=== PATIENT | female | born 1965 | race Caucasian/White ===

== ENCOUNTER 2021-02-13 16:35 | Outpatient (CLI) | payer BC, SELFPAY ==
--- NOTE | ~2021-02-13 | MM_ITS ---
EXAMINATION: MM screening [facility] BI w grisel HISTORY: Screening mammogram TECHNIQUE: Craniocaudal and mediolateral oblique 3-D tomosynthesis images were obtained and synthetic 2-D images were generated. CAD analysis was submitted and interpreted. COMPARISON: 06/02/2018, 08/26/2016, 05/22/2015 BREAST PARENCHYMAL COMPOSITION: The breasts are almost entirely fatty. FINDINGS: There is no evidence of suspicious mass, calcification, or architectural distortion to sugg est malignancy in either breast. There has been no suspicious interval change. IMPRESSION: 1. No mammographic evidence of malignancy. 2. Recommend routine screening mammography in one year. BI-RADS Category 1: Negative Reviewed, dictated and finalized at location A.
== END 2021-02-13 16:36 | disposition home or self-care (01) ==
LOC: ANHIMG 16:38
PROVIDERS: PCP Internal Medicine; Visit Provider Family Medicine
DX: Z12.31 Encounter for screening mammogram for malignant neoplasm of breast (principal)
CPT/HCPCS: 77063; 77067

== ENCOUNTER 2021-04-19 01:29 | Day surgery (SDC) | payer BC, SELFPAY ==
[2021-04-03 13:42] VITALS: BMI 46.2
[2021-04-19] MEDS: LACTATED RINGERS 1,000 ML 150 ML IV CONT (07:22)
[2021-04-19 07:32] VITALS: BP 141/96; PULSE 94; RESP 18; TEMP 36.4; O2SAT 94; BMI 46.6
--- NOTE | 2021-04-19 07:38 | SUR.OPER ---
0730 SPOKE WITH PATIENT AND FAMILY...INSTRUCTED ON DELAY.
--- NOTE | 2021-04-19 07:59 | WPDANESEPPF ---
Anes - Initial Pre Proc Eval Procedure: Operation Date: 04/19/21 08:30 Proposed Procedures p Esophagogastroduodenoscopy - Popeye Figueroa MD Date/Time: 04/19/21 07:59 Surgeon: Popeye Figueroa MD Pre Op Diagnosis: GERD Patient Data Age: 56 Gender: F Height: 1.68 m Weight: 131 kg Last Vital Signs Temp 36.4 C 04/19/21 07:32 Pulse 94 04/19/21 07:32 Resp 18 04/19/21 07:32 BP 141/96 H 04/19/21 07:32 Pulse Ox 94 04/19/21 07:32 Allergies Allergy/AdvReac Type Severity Reaction Status Date / Time No Known Allergies Allergy Unknown Verified 04/19/21 07:20 Home Medications Medication Instructions Recorded Confirmed Type Calcium 600 + D(3) 1 cap PO DAILY 08/16/19 04/03/21 History Multiple Vitamin, Womens 1 tablet PO DAILY 08/16/19 04/03/21 History ascorbic acid (vitamin C) [Vitamin 2 g PO DAILY 08/16/19 04/03/21 History C] cholecalciferol (vitamin D3) 5,000 unit PO DAILY 08/16/19 04/03/21 History [Vitamin D3] esomeprazole magnesium 20 mg PO DAILY 08/16/19 04/03/21 History [id number]-[id number] 2-C-D3-padma 1 tablet PO DAILY 08/16/19 04/03/21 History vitamin E 400 unit PO DAILY 08/16/19 04/03/21 History montelukast 10 mg tablet 10 mg PO DAILY #90 tablet 11/14/19 04/03/21 Rx lovastatin 20 mg tablet 20 mg PO QPM #90 tablet 05/28/20 04/03/21 Rx valacyclovir 1 gram tablet 1,000 mg PO DAILY #90 tablet 07/03/20 04/03/21 Rx nortriptyline 25 mg capsule 25 mg PO HS #90 cap 09/20/20 04/03/21 Rx apple cider vinegar 600 mg PO BID 04/03/21 04/03/21 History aspirin 81 mg PO DAILY 04/03/21 04/03/21 History biotin 10,000 mcg PO DAILY 04/03/21 04/03/21 History herbal complex no.218 [Serenagen] 500 mg PO DAILY 04/03/21 04/03/21 History levothyroxine 75 mcg PO DAILY 04/03/21 04/03/21 History Patient hx anesthesia problems: none Family hx anesthesia problems: none PMFSH Past Medical History Medical History 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 GERD (gastroesophageal reflux disease) Hyperlipidemia Hypothyroidism VISHNU (obstructive sleep apnea) CPAP Osteoarthritis Surgical History Surgical History History of hysterectomy Family History Family History Mother Hypertension Family history of malignant neoplasm of uterus Family history of hypercholesterolemia Cerebrovascular accident Family history of malignant neoplasm of cervix Sibling Hypertension Family history of hypercholesterolemia Father Family history of lung cancer Social History Social History Smoking status: Never smoker Alcohol intake: current Alcohol use details: socially Living arrangements: with family Additional living arrangements comments: [place]- [phone] Gender identity (if verbalized by the patient): Female Spiritual care concerns: No Anes - Eval Final PreProcedure Day of Procedure 04/19/21 07:59 Patient weight: morbidly obese Heart: regular rate and rhythm Lungs: clear to auscultation Airway: Mallampati scale class II Neurological: alert and oriented Last oral intake: >/= 8 hours ASA classification: III Emergent: no Anesthetic plan: proceed Anesthesia type and monitoring: general GIVS and standard monitoring Informed Consent: The patient's anesthetic plan and its attendant risks and benefits were discussed with the patient/family/POA. Questions were solicited and answers provided to the satisfaction of the patient/family/POA.
--- NOTE | 2021-04-19 08:50 | PM.HPGS ---
History of Present Illness History of Present Illness Consent: Risks, benefits, and alternatives have been discussed and questions answered. Patient agrees to proceed with procedure. Chief complaint: GERD Narrative: Kimber Malhotra is a 56 year old female with choking sensation and also intermittent hoarseness despite using ppi. Never had egd. Review of Systems Constitutional: Constitutional: Denies headache(s) and Denies weakness Eyes: Eyes: Denies blurry vision ENT: Reports Normal hearing present, Denies headache(s) and Denies neck pain Cardiovascular: Cardiovascular: Denies chest pain and Denies dyspnea Respiratory: Respiratory: Denies dyspnea Gastrointestinal: Gastrointestinal: Reports no additional gastrointestinal complaints Genitourinary: Genitourinary: Denies dysuria Musculoskeletal: Musculoskeletal: Denies neck pain Integumentary/Breasts: Skin/Breast: Denies dry skin Neurologic: Reports Normal hearing present, Denies headache(s) and Denies weakness Psychiatric: Psychiatric: Denies anxiety Endocrine: Endocrine: Denies change in body appearance Hematologic/Lymphatic: Hematologic/Lymphatic: Denies easy bleeding Allergic/Immunologic: Allergic/Immunologic: Denies urticaria PMFSH Past Medical History Medical History (Updated 04/19/21 @ 08:51 by Popeye Figueroa MD) Choking due to phlegm 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 GERD (gastroesophageal reflux disease) Hoarseness Hyperlipidemia Hypothyroidism VISHNU (obstructive sleep apnea) CPAP Osteoarthritis Surgical History Surgical History History of hysterectomy Family History Family History Mother Hypertension Family history of malignant neoplasm of uterus Family history of hypercholesterolemia Cerebrovascular accident Family history of malignant neoplasm of cervix Sibling Hypertension Family history of hypercholesterolemia Father Family history of lung cancer Social History Social History Smoking status: Never smoker Alcohol intake: current Alcohol use details: socially Living arrangements: with family Additional living arrangements comments: [place]- [phone] Gender identity (if verbalized by the patient): Female Spiritual care concerns: No Meds Home Medications and Allergies Home Medications Medication Instructions Recorded Confirmed Type Calcium 600 + D(3) 1 cap PO DAILY 08/16/19 04/03/21 History Multiple Vitamin, Womens 1 tablet PO DAILY 08/16/19 04/03/21 History ascorbic acid (vitamin C) [Vitamin 2 g PO DAILY 08/16/19 04/03/21 History C] cholecalciferol (vitamin D3) 5,000 unit PO DAILY 08/16/19 04/03/21 History [Vitamin D3] esomeprazole magnesium 20 mg PO DAILY 08/16/19 04/03/21 History [id number]-mpzwh-ryd 2-C-D3-padma 1 tablet PO DAILY 08/16/19 04/03/21 History vitamin E 400 unit PO DAILY 08/16/19 04/03/21 History montelukast 10 mg tablet 10 mg PO DAILY #90 tablet 11/14/19 04/03/21 Rx lovastatin 20 mg tablet 20 mg PO QPM #90 tablet 05/28/20 04/03/21 Rx valacyclovir 1 gram tablet 1,000 mg PO DAILY #90 tablet 07/03/20 04/03/21 Rx nortriptyline 25 mg capsule 25 mg PO HS #90 cap 09/20/20 04/03/21 Rx apple cider vinegar 600 mg PO BID 04/03/21 04/03/21 History aspirin 81 mg PO DAILY 04/03/21 04/03/21 History biotin 10,000 mcg PO DAILY 04/03/21 04/03/21 History herbal complex no.218 [Serenagen] 500 mg PO DAILY 04/03/21 04/03/21 History levothyroxine 75 mcg PO DAILY 04/03/21 04/03/21 History Allergies Allergy/AdvReac Type Severity Reaction Status Date / Time No Known Allergies Allergy Unknown Verified 04/19/21 07:20 Vital Signs Vital Signs - 24 hr 04/19/21 07:32 Temperature 97.6 F Pulse Rate 94 Respiratory Rate 18 Blood Pressure 141/96 H Pulse Oximetry 94 Exam Const:
[2021-04-19] MEDS: BENZOCAINE (*SP) 60 ML SPRAY CAN (HURRICAINE) 1 SPRAY MUCOUS MEM (08:53)
[2021-04-19 09:05] VITALS: BP 129/69; PULSE 87; RESP 25; O2SAT 99
[2021-04-19 09:15] VITALS: BP 145/84; PULSE 79; RESP 21; O2SAT 99
[2021-04-19 09:25] VITALS: BP 149/96; PULSE 74; RESP 19; O2SAT 96
== END 2021-04-19 09:35 | disposition home or self-care (01) ==
PROVIDERS: PCP Family Medicine; Visit Provider Internal Medicine Gastroenterology
PROC: 0DJ08ZZ Inspection of Upper Intestinal Tract, Via Natural or Artificial Opening Endoscopic (ICD-10-PCS; CPT 43235; principal; 2021-04-19 08:30)
DX: K21.9 Gastro-esophageal reflux disease without esophagitis (principal); R09.89 Other specified symptoms and signs involving the circulatory and respiratory systems; R49.0 Dysphonia; E78.5 Hyperlipidemia, unspecified; E03.9 Hypothyroidism, unspecified; M19.90 Unspecified osteoarthritis, unspecified site; G47.33 Obstructive sleep apnea (adult) (pediatric); Z90.710 Acquired absence of both cervix and uterus
CPT/HCPCS: 43239; 88305; J2704; J7120

== ENCOUNTER 2021-09-12 08:34 | Outpatient (CLI) | payer BC, SELFPAY ==
--- NOTE | ~2021-09-12 | MR_ITS ---
EXAMINATION: MR knee LT wo con DATE: 09/12/2021 09:36 INDICATION: Unspecified internal derangement of the left knee present with medial left knee pain and swelling TECHNIQUE: Magnetic resonance imaging (MRI) of the left knee was performed without intravenous contra st. Sequences included coronal PD-weighted FSE, coronal PD-weighted FS FSE, sagittal T2-weighted FSE , sagittal PD-weighted FS FSE and axial PD weighted fat saturated FSE. COMPARISON: 07/13/2019 FINDINGS: Medial compartment: Again seen is a very small anterior displaced flap tear arising from inner third of the lateral aspec t of the posterior horn of the medial meniscus. There is a new longitudinal horizontal tear extending to the superior articular surface of the posterior horn which extends further medially to the software design engineer ior body of the meniscus. Interval progression of chondromalacia with now deep chondral fissuring wit hout degenerative subchondral changes along the central weightbearing medial femoral condyle. Articul ar cartilage at the medial tibial plateau appears relatively preserved. Lateral compartment: Lateral meniscus is normal. Interval increase in size of a now 14 x 10 mm region of deep chondral ulc eration at the anterior to central weightbearing lateral femoral condyle. Mild chondral surface regul arity at the more anterior weightbearing lateral femoral condyle. Partial-thickness cartilage loss wi th smooth chondral surface at the lateral third of the lateral tibial plateau. Patellofemoral compartment: Deep chondral ulceration with mild irregularity to the underlying cortex and minimal subarticular mar row signal changes at the central aspect of the patellar apical ridge and inferomedial aspect of the lateral facet. Chondral surface regularity along the medial patellar facet. Additional deep chondral ulceration with more prominent cortical irregularity and subarticular cystic change at the trochlear groove, lateral trochlear and lateral side of the medial trochlea. Overall there has been no signific ant change in the patellofemoral compartment. Ligaments and tendons: Anterior and posterior cruciate ligaments are normal. The medial collateral ligament and fibular silke ateral ligament complex are normal. The extensor mechanism is normal. The visualized medial and later al hamstring tendons as well as the iliotibial band are normal. Fluid: Small knee joint effusion. No loose osteochondral bodies identified. Persistent mild prepatellar kelly a without discrete bursal fluid collection. Osseous/other: Proximally 5 mm lateral patellar subluxation. Alignment is otherwise normal. No fracture or abnormal marrow replacing process. IMPRESSION: 1. Interval progression of a complex medial meniscal tear with unchanged small displaced flap at the lateral aspect of the posterior horn and new more extensive longitudinal horizontal tear plane extend ing across the posterior horn to the posterior body. 2. Tricompartmental osteoarthritis, moderate severity with no significant change in extensive high-gr vasyl patellofemoral chondromalacia and mild in the medial and lateral compartments with progression of moderate grade chondral malacia along the weightbearing femoral condyles. Reviewed, dictated and finalized at location B. SPECIALIST IMPRESSION: 1. Interval progression of a complex medial meniscal tear with unchanged small displaced flap at the lateral aspect of the posterior horn and new more extensi ve longitudinal horizontal tear plane extending across the posterior horn to th e posterior body. 2. Tricompartmental osteoarthritis, moderate severity with no significant gamble e in extensive high-grade patellofemoral chondromalacia and mild in the medial and lateral compartments with progression
== END 2021-09-12 08:35 | disposition home or self-care (01) ==
LOC: ANHIMG 08:41
PROVIDERS: PCP Family Medicine; Visit Provider Orthopaedic Surgery
DX: M17.12 Unilateral primary osteoarthritis, left knee (principal)
CPT/HCPCS: 73721

== ENCOUNTER 2021-10-28 07:55 | Outpatient (CLI) | payer BC, SELFPAY ==
--- NOTE | 2021-10-28 08:00 | ECG_ITS ---
Measurements Intervals [place] Rate: 81 P: 40 WA: 144 QRS: 7 QRSD: 89 T: 7 QT: 333 QTc: 387 Interpretive Statements SINUS RHYTHM BORDERLINE R WAVE PROGRESSION, ANTERIOR LEADS BORDERLINE T WAVE ABNORMALITY- INFERIOR LEADS BASELINE ARTIFACT- I, III, AVL BORDERLINE ECG Electronically Signed On 10-28-2021 8:28:41 POWER TOOL REPAIRER by Rustam Bruno D.O.
[2021-10-28 09:12] LABS: Anion Gap 7 mmol/L (8-16); Blood Urea Nitrogen 13 mg/dL (7-17); Calcium 8.8 mg/dL (8.4-10.2); Carbon Dioxide 29 mmol/L (22-30); Chloride 104 mmol/L (98-107); Estimated Glomerular Filt Rate > 60; Glucose 105 mg/dL (65-110); Potassium 4.2 mmol/L (3.4-5.0); Sodium 140 mmol/L (137-145)
== END 2021-10-28 07:56 | disposition home or self-care (01) ==
LOC: ANHSURGERY 07:59
PROVIDERS: Anesthesiology; PCP Family Medicine; Visit Provider Orthopaedic Surgery
DX: E78.5 Hyperlipidemia, unspecified (principal); Z79.899 Other long term (current) drug therapy; Z01.818 Encounter for other preprocedural examination; R94.31 Abnormal electrocardiogram [ECG] [EKG]
CPT/HCPCS: 36415; 80048; 93005

== ENCOUNTER 2021-10-29 01:48 | Day surgery (SDC) | payer BC, SELFPAY ==
[2021-10-25 10:55] VITALS: BMI 45.5
--- NOTE | 2021-10-25 11:08 | PC.NURSE ---
Report to the Outpatient Waiting Room, entrance under the green pavilion located off [facility], at time 11:00 on date 10/29/21. OR Time: 1:00. - You will be asked a series of questions to screen for COVID 19 for your protection. - A mask is required within the hospital. - No visitors are allowed at this time. Preoperative COVID Testing Requirements: No COVID Test needed if: (proof is required; if not received patient will have Rapid Test prior to entry) - Patient has received COVID Vaccine at least 14 days prior to procedure date or - Patient has positive COVID test result within last 90 days of surgery date. COVID Test needed if above criteria is not met Patients may have clear liquids (water, carbonated beverages, clear teas, apple juice) until 3 hours prior to surgery (10:00) with a maximum of 20 ounces. - No food from midnight until time of surgery Take the following medications with a SIP of water the morning of surgery: LEVOTHYROXINE, VALACYCLOVIR Medications to discontinue per physician: VITAMINS/SUPPLEMENTS Date to take last dose: 10/25/21 STOP ASPIRIN 7 DAYS PRIOR TO SURGERY PER DR. PERSON Please no make-up, nail luxembourgish, hairspray, perfume, deodorant, or body powder the day of surgery. No jewelry (including any body piercings) or valuables the day of surgery, leave them at home. Please take a shower or bath the night before, or the morning of, surgery with an antibacterial soap. Wear comfortable, loose fitting clothing. - Jewelry must be removed prior to entering the operating room. Rings and piercings that are not removed may be cut off. - The hospital will not accept responsibility for valuables. - Please leave all valuables, including medications, at home the day of surgery. If you are going home after surgery, a licensed restaurant delivery driver must drive you home. - NO public transportation without another adult. - We recommend that an adult stay with you for 24 hours following discharge. - We also recommend that you do not drive, make important decision, drink alcoholic beverages, or take any drugs that were not prescribed by your health care provider for at least 24 hours after your discharge time. Follow any additional instructions given to you from your surgeon. Telephone instructions given to FELIX AYOUB and asked if any additional questions and then verbalized understanding. Patient advised to call surgeon office or pre surgery nurse liaison [phone] if any additional questions.
[2021-10-29] VITALS (8 sets, daily range): BP systolic 123–151; BP diastolic 71–88; PULSE 70–83; RESP 16–20; TEMP 36.6–36.8; O2SAT 95–100
--- NOTE | 2021-10-29 09:40 | WPDHPUPDATE1 ---
History and Physical Update Update Date/Time: 10/29/21 09:40 History and Physical has been reviewed, including an updated exam of the patient. There are NO changes in the patient's condition. Risks, benefits, and alternatives have been discussed and questions answered. Patient agrees to proceed with procedure.
[2021-10-29] MEDS: LACTATED RINGERS 1,000 ML 30 ML IV CONT (11:07)
[2021-10-29] MEDS: KETOROLAC 15 MG/ML VIAL (*BKC) IV PUSH (11:09)
[2021-10-29] MEDS: ACETAMINOPHEN 500 MG TABLET 1000 MG PO (11:10)
--- NOTE | 2021-10-29 11:27 | WPDANESEPPF ---
Anes - Initial Pre Proc Eval Procedure: Operation Date: 10/29/21 12:30 Proposed Procedures p Left Knee Arthroscopic Partial Medial Meniscectomy - Eduin Jovel MD Date/Time: 10/29/21 11:27 Surgeon: Eduin Jovel MD Pre Op Diagnosis: left medial meniscus tear Patient Data Age: 56 Gender: F Height: 1.69 m Weight: 129.97 kg Allergies Allergy/AdvReac Type Severity Reaction Status Date / Time No Known Allergies Allergy Unknown Verified 10/25/21 10:52 Home Medications Medication Instructions Recorded Confirmed Type Calcium 600 + D(3) 1 cap PO DAILY 08/16/19 10/25/21 History Multiple Vitamin, Womens 1 tablet PO DAILY 08/16/19 10/25/21 History ascorbic acid (vitamin C) [Vitamin 2 g PO DAILY 08/16/19 10/25/21 History C] cholecalciferol (vitamin D3) 5,000 unit PO DAILY 08/16/19 10/25/21 History [Vitamin D3] esomeprazole magnesium 20 mg PO DAILY 08/16/19 10/25/21 History jcuvsqfz-kewxr-ajd 2-C-D3-padma 1 tablet PO DAILY 08/16/19 10/25/21 History vitamin E 400 unit PO DAILY 08/16/19 10/25/21 History montelukast 10 mg tablet 10 mg PO DAILY #90 tablet 11/14/19 10/25/21 Rx lovastatin 20 mg tablet 20 mg PO QPM #90 tablet 05/28/20 10/25/21 Rx valacyclovir 1 gram tablet 1,000 mg PO DAILY #90 tablet 07/03/20 10/25/21 Rx nortriptyline 25 mg capsule 25 mg PO HS #90 cap 09/20/20 10/25/21 Rx apple cider vinegar 600 mg PO BID 04/03/21 10/25/21 History aspirin 81 mg PO DAILY 04/03/21 10/25/21 History biotin 10,000 mcg PO DAILY 04/03/21 10/25/21 History herbal complex no.218 [Serenagen] 500 mg PO DAILY 04/03/21 10/25/21 History levothyroxine 75 mcg PO DAILY 04/03/21 10/25/21 History furosemide 20 - 40 mg PO DAILY PRN 10/25/21 10/25/21 History Patient hx anesthesia problems: none Family hx anesthesia problems: none Results Review: All pre-operative results and documents have been reviewed as part of the pre-operative evaluation. 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 GERD (gastroesophageal reflux disease) Hoarseness Hyperlipidemia Hypothyroidism VISHNU (obstructive sleep apnea) CPAP Osteoarthritis Surgical History Surgical History History of hysterectomy Family History Family History Mother Hypertension Family history of malignant neoplasm of uterus Family history of hypercholesterolemia Cerebrovascular accident Family history of malignant neoplasm of cervix Sibling Hypertension Family history of hypercholesterolemia Father Family history of lung cancer Social History Social History Smoking status: Never smoker Alcohol intake: current Alcohol use details: socially Substance use: never Substance use type: does not use Living arrangements: with family Additional living arrangements comments: [place]- [phone] Gender identity (if verbalized by the patient): Female Spiritual care concerns: No Anes - Eval Final PreProcedure Day of Procedure 10/29/21 11:27 Patient weight: morbidly obese Heart: regular rate and rhythm Lungs: clear to auscultation Airway: Mallampati scale class II Neurological: alert and oriented Last oral intake: >/= 8 hours ASA classification: III Emergent: no Anesthetic plan: proceed Anesthesia type and monitoring: general LMA and standard monitoring Results Review: All pre-operative results and documents have been reviewed as part of the pre-operative evaluation. Informed Consent: The patient's anesthetic plan and its attendant risks and benefits were discussed with the patient/family/POA. Questions were solicited and answers provided to the satisfaction of the patient/family/POA.
[2021-10-29] MEDS: ceFAZolin 3 GM/D5W 100 ML 100 ML IVPB (11:58)
[2021-10-29] MEDS: BUPIVACAINE/EPINEPHRINE 0.25% 10 ML VIAL 20 ML INFILTRATE (12:27)
--- NOTE | 2021-10-29 14:58 | P.OP_ITS ---
Procedure Note - Detailed Date of Procedure 10/29/21 Pre-op Diagnosis left medial meniscus tear Post-op Diagnosis same Procedure Performed Arthroscopic partial left meniscectomy Surgeon Eduin Jovel MD Television Tube Inspector Luz Wood PA-C Anesthesia general Findings Moderate synovitis. Severe tricompartmental degenerative changes. Most noted at the patellofemoral joint. Grade 3 delaminated area at the posterior weight- bearing medial femoral condyle. This did appear to potentially contact the torn posterior horn meniscus. Meniscus tear was debrided primarily at the posterior row medial aspect. Chondroplasty was performed on the femur. Medial femur chondromalacia grade 3, medial tibia grade 1. Lateral femur chondromalacia grade 2, lateral tibia grade 1. Patellar grade 2/3, trochlea grade 2. Description of Procedure The patient was identified and the surgical site confirmed and signed in the preoperative holding area. Antibiotics were started per protocol. She was brought to the operative room and transferred to the OR table. A general anesthetic was administered. Supine position with the operative lower extremity position in the leg samaniego after placement of a well padded tourniquet. The leg support was lowered and the contralateral limb was supported with a soft bolster. The knee was prepped and draped in the usual sterile fashion. A time- out was performed. The portal sites were marked and infiltrated with 0.5% Marcaine 20 mL. The limb was exsanguinated and the tourniquet inflated to 300 mL Hg. Standard inferolateral and inferomedial portals were established. Inflow was obtained with the saline pump. The camera was introduced. Diagnostic inspection of the joint was accomplished. The meniscus was debrided with the arthroscopic shaver and punches until stable. The arthroscopic instruments were removed. The tourniquet released and wounds closed with subcutaneous 4-0 Monocryl absorbable suture. Steri strips and a sterile dressing were applied. A light elastic wrap was placed. The patient was extubated and brought to the recovery room in stable condition. Estimated Blood Loss -1.0 Drains No Complications No immediate complications Condition stable Disposition PACU
== END 2021-10-29 14:37 | disposition home or self-care (01) ==
PROVIDERS: PCP Family Medicine; Visit Provider Orthopaedic Surgery
PROC: (CPT 29870; principal; 2021-10-29 12:30)
DX: M23.222 Derangement of posterior horn of medial meniscus due to old tear or injury, left knee (principal); M17.12 Unilateral primary osteoarthritis, left knee; M65.862 Other synovitis and tenosynovitis, left lower leg; M22.42 Chondromalacia patellae, left knee; K21.9 Gastro-esophageal reflux disease without esophagitis; E78.5 Hyperlipidemia, unspecified; E03.9 Hypothyroidism, unspecified; G47.33 Obstructive sleep apnea (adult) (pediatric); Z79.82 Long term (current) use of aspirin; E66.01 Morbid (severe) obesity due to excess calories; Z68.42 Body mass index [BMI] 45.0-49.9, adult
CPT/HCPCS: 29881; A9270; J0690; J1100; J1885; J2250; J2405; J2704; J3010; J7120

== ENCOUNTER → 2022-05-14 13:45 | Outpatient (CLI) | payer BC, SELFPAY ==
--- NOTE | ~2022-05-14 | US_ITS ---
EXAMINATION: US carotid duplex BI DATE: 05/14/2022 14:18 INDICATION: Rounded artery stenosis TECHNIQUE: Grayscale, color Doppler, and pulsed Doppler images of the cervical carotid arteries were obtained. The degree of vessel stenosis is placed in one of the following categories: normal, <50%, 5 0-69%, >=70% but less than near-occlusion, near-occlusion, or total occlusion. Note that percent sten osis relative to normal distal artery lumen diameter is indirectly measured from velocity measurement s as described by Oneil, et al. Radiology 2003; 229:340-346. Notes: Normal: Peak systolic velocity <125 centimeters/sec and no plaque <50%. Peak systolic velocity <125 ( EDV <40; ICA/CCA PSV ratio <2.0; used these factors only a tandem lesions or low cardiac output or co ntralateral disease) 50-69 %: PSV 125-230 (EDV 40-100; ratio 2-4) >= 70% but less than near occlusion: PSV greater than 230 (EDV > 100; ratio> 4.0) Near Occlusion: PSV that is variable; markedly narrowed lumen Occlusion: Absent flow on color/spectral Doppler and no lumen on pastor scale. COMPARISON: None. FINDINGS: RIGHT: The right common carotid artery (CCA) peak systolic velocity (PSV) is 104 cm/s. The right internal ca rotid artery (ICA) PSV is 80 cm/s. The right ICA end-diastolic velocity (EDV) is 25 cm/s. The right I CA/CCA PSV ratio is 0.8. The external carotid artery (ECA) PSV is 114 cm/s. There is antegrade flow i n the right vertebral artery. LEFT: The left CCA PSV is 105 cm/s. The left ICA PSV is 95 cm/s. The left ICA EDV is 32 cm/s. The left ICA/ CCA PSV ratio is 0.9. The ECA PSV is 96 cm/s. There is antegrade flow in the left vertebral artery. IMPRESSION: 1. Less than 50% stenosis in the right internal carotid artery by sonographic criteria. 2. Less than 50% stenosis in the left internal carotid artery by sonographic criteria. Reviewed, dictated and finalized at location A. IMPRESSION: 1. Less than 50% stenosis in the right internal carotid artery by sonographic chandler madrigal. 2. Less than 50% stenosis in the left internal carotid artery by sonographic antonella lovell.
== END ==
PROVIDERS: PCP Family Medicine; Visit Provider Family Medicine
DX: I65.23 Occlusion and stenosis of bilateral carotid arteries (principal)
CPT/HCPCS: 93880

== ENCOUNTER → 2022-07-11 16:19 | Outpatient (CLI) | payer BC, SELFPAY ==
--- NOTE | ~2022-07-11 | MM_ITS ---
EXAMINATION: MM screening [facility] BI w grisel HISTORY: Screening TECHNIQUE: Craniocaudal and mediolateral oblique 3-D tomosynthesis images were obtained and synthetic 2-D images were generated. CAD analysis was submitted and interpreted. COMPARISON: Comparison to multiple prior studies sequentially, with oldest reviewed study dated 03/2013. BREAST PARENCHYMAL COMPOSITION: There are scattered areas of fibroglandular density. FINDINGS: There is no evidence of suspicious mass, calcification, or architectural distortion to sugg est malignancy in either breast. There has been no suspicious interval change. IMPRESSION: 1. No mammographic evidence of malignancy. 2. Recommend routine screening mammography in one year. BI-RADS Category 1: Negative Reviewed, dictated and finalized at location A.
== END ==
PROVIDERS: PCP Family Medicine; Visit Provider Family Medicine
DX: Z12.31 Encounter for screening mammogram for malignant neoplasm of breast (principal)
CPT/HCPCS: 77063; 77067

== ENCOUNTER → 2022-11-07 14:38 | Outpatient (CLI) | payer BC, SELFPAY ==
--- NOTE | ~2022-11-07 | XR_ITS ---
EXAMINATION: XR abdomen/kub 1V INDICATION: Left lower quadrant pain TECHNIQUE: Supine views of the abdomen were obtained on 2 radiographs. COMPARISON: None FINDINGS: The bowel gas pattern is normal. There is a moderate volume of colonic stool. The visualize d lung bases are clear. There is mild osteoarthritis of the hips. IMPRESSION: 1. No radiographic correlate for the patient's symptoms. Reviewed, dictated and finalized at location B. [employer]
== END ==
PROVIDERS: PCP Family Medicine; Visit Provider Nurse Practitioner Family
DX: R10.32 Left lower quadrant pain (principal)
CPT/HCPCS: 74018

== ENCOUNTER 2023-06-04 09:53 | Outpatient (CLI) | payer BC, SELFPAY ==
--- NOTE | 2023-06-04 | EST_ITS ---
Patient Info Name: Kimber Malhotra Age: 58 years : 1965 Gender: Female Ht: 66 in Wt: 285 lbs BSA: 2.53 m2 Exam Date: 06/04/2023 11:10 AM Exam Location: [facility] Patient Status: Outpatient Admit Date: 06/04/2023 Staff Ordering Physician: Jesse, Amy Osman MD Driver Guard: [place] RDCS Attending Provider: KATHRYN MEJÍA DO Referring Physician: Jesse CHENG; Exercise Technologist: Evelyn Mckinney RDCS Exercise Physician: Kathryn Mejía DO Exam Type: CA stress echo Study Info Indications R07.9 - Chest pain, unspecified Treadmill exercise stress echocardiogram is performed. Summary 1. 1. Negative Gene exercise stress test for ischemic ST changes by ECG criteria. 2. 2. Reduced functional capacity, achieving 7 METs of workload. 3. 3. Hypertensive response to exercise. 4. 4. Appropriate HR response to exercise. 5. 5. Appropriate HR recovery at 1 minute post exercise. 6. 6. Negative stress echocardiogram for ischemia by wall motion analysis. 7. 7. Patient informed of the above results. Stress Echo Findings Left Ventricle Appropriate increase in LV endocardial thickening with systole. Appropriate augmentation of contractility with systole. No wall motion abnormality. Left Ventricle Normal LV systolic function, no wall motion abnormality. Protocol: Gene Stress ECG Details Stage: REST Duration (min): 1 min : 1 sec Speed (mph): 0.0 Grade (%): 0 HR (bpm): 87 SBP (mmHg): 129 DBP (mmHg): 80 METS: --- Stage: REST Duration (min): 25 min : 44 sec Speed (mph): 0.0 Grade (%): 0 HR (bpm): 93 SBP (mmHg): 129 DBP (mmHg): 80 METS: --- Stage: STAGE 1 Duration (min): 1 min : 0 sec Speed (mph): 1.7 Grade (%): 10 HR (bpm): 114 SBP (mmHg): 129 DBP (mmHg): 80 METS: --- Stage: STAGE 1 Duration (min): 2 min : 0 sec Speed (mph): 1.7 Grade (%): 10 HR (bpm): 128 SBP (mmHg): 129 DBP (mmHg): 80 METS: --- Stage: STAGE 1 Duration (min): 3 min : 0 sec Speed (mph): 1.7 Grade (%): 10 HR (bpm): 134 SBP (mmHg): 150 DBP (mmHg): 90 METS: --- Stage: STAGE 2 Duration (min): 1 min : 0 sec Speed (mph): 2.5 Grade (%): 12 HR (bpm): 145 SBP (mmHg): 150 DBP (mmHg): 90 METS: --- Stage: STAGE 2 Duration (min): 2 min : 0 sec Speed (mph): 2.5 Grade (%): 12 HR (bpm): 155 SBP (mmHg): 184 DBP (mmHg): 74 METS: --- Stage: STAGE 2 Duration (min): 2 min : 1 sec Speed (mph): 0.0 Grade (%): 0 HR (bpm): 155 SBP (mmHg): 184 DBP (mmHg): 74 METS: --- Stage: RECOVERY Duration (min): 0 min : 58 sec Speed (mph): 0.0 Grade (%): 0 HR (bpm): 129 SBP (mmHg): 184 DBP (mmHg): 74 METS: --- Stage: RECOVERY Duration (min): 1 min : 58 sec Speed (mph): 0.0 Grade (%): 0 HR (bpm): 122 SBP (mmHg): 254 DBP (mmHg): 88 METS: --- Stage: RECOVERY Duration (min): 2 min : 58 sec Speed (mph): 0.0 Grade (%): 0 HR (bpm): 104 SBP (mmHg): 226 DBP (mmHg): 83 METS: ---
== END 2023-06-04 09:54 | disposition home or self-care (01) ==
LOC: ANHCARD 09:54
PROVIDERS: PCP Family Medicine; Visit Provider Family Medicine
DX: R07.9 Chest pain, unspecified (principal)
CPT/HCPCS: 93351

== ENCOUNTER → 2023-09-16 14:21 | Outpatient (CLI) | payer BC, SELFPAY ==
--- NOTE | ~2023-09-16 | MM_ITS ---
EXAMINATION: MM screening pako BI w grisel HISTORY: Screening TECHNIQUE: Craniocaudal and mediolateral oblique 3-D tomosynthesis images were obtained and synthetic 2-D images were generated. CAD analysis was submitted and interpreted. COMPARISON: No prior mammogram is available for comparison at this institution. BREAST PARENCHYMAL COMPOSITION: There are scattered areas of fibroglandular density. FINDINGS: There is no evidence of suspicious mass, calcification, or architectural distortion to sugg est malignancy in either breast. There has been no suspicious interval change. IMPRESSION: 1. No mammographic evidence of malignancy. 2. Recommend routine screening mammography in one year. BI-RADS Category 1: Negative Reviewed, dictated and finalized at location A. SAWYER
== END ==
PROVIDERS: PCP Family Medicine; Visit Provider Nurse Practitioner Family
DX: Z12.31 Encounter for screening mammogram for malignant neoplasm of breast (principal)
CPT/HCPCS: 77063; 77067

== ENCOUNTER 2024-01-27 07:34 | Outpatient (CLI) | payer BC, SELFPAY ==
--- NOTE | ~2024-01-27 | XR_ITS ---
Clinical Indication: Chronic cough PA and lateral views of the chest: Comparison: 12/01/2013 Findings: The lungs are clear, without evidence of focal consolidation or pleural effusion. Cardiome diastinal silhouette is within normal limits. Bones and soft tissues are unremarkable. Impression: Normal chest. Reviewed, dictated and finalized at location . Impression: Normal chest.
== END 2024-01-27 07:35 ==
LOC: MICIMG 07:35
PROVIDERS: PCP Family Medicine; Visit Provider Family Medicine
DX: R05.3 Chronic cough (principal)
CPT/HCPCS: 71046

== ENCOUNTER 2025-04-18 15:27 | Emergency (ER) | payer BC, SELFPAY ==
--- OUTSIDE RECORDS SUMMARY | 2025-04-18 15:29 | XMS_ITS | Data Portability ---
Author Organization [facility] [employer], Main Office Address [address] [place] [address] Assessment No assessment recorded. Plan of Treatment Reminders Order Date Submit Date Provider Last Modified By Organization Details Last Modified Time Details Appointments None recorded. Lab HbA1c (hemoglobin A1c), blood 2023 [facility], [address], [place], [address], 08:23:03 lipid panel, serum 2023 [facility], [address], [place], [address], 4 08:23:01 CMP, serum or plasma 2023 [facility], [address], [place], [address], 08:23:00 CBC w/ auto diff 2023 [facility], [address], [place], [address], 4 08:22:58 noninvasive colorectal cancer DNA + occult blood screening, QL, stool 2023 ENLOE [facility] (Cologuard Orders Only), [address], [address], [place], [address], 4 05:46:45 TSH + free T4, serum 2023 024 EN [facility], [address], [place], [address], 4 08:22:57 Hepatitis C IgG Ab, qual, serum 2023 024 EN [facility], [address], [place], [address], 4 08:23:02 HbA1c (hemoglobin A1c), blood 2023 024 EN Not available 4 06:22:25 lipid panel, serum 2023 024 EN Not available 4 06:22:22 hepatic function panel, serum 2023 024 EN Not available 4 06:22:24 BMP, serum or plasma 2023 024 EN Not available 4 06:22:21 vitamin D, 25-hydroxy, total, serum 2023 024 EN Not available 4 06:22:27 TSH, serum or plasma 2023 024 [email or web address] Not available 4 08:43:22 T4, free, serum 2023 024 EN Not available 4 06:22:26 Referral None recorded. Procedures None recorded. Surgeries None recorded. Imaging ankle brachial index - Order for 09/23/2024. 2023 [facility] [place] ([facility]), [address], [place], [address], 4 15:04:48 XR, chest, 2 view 2023 024 EN Not available 4 13:07:46 Medication Orders phentermine 37.5 mg tablet 2023 024 EN [id number], [address], [place], [address], 4 12:24:29 prednisone 20 mg tablet 2023 024 [address] [id number], [address], [place], [address], 4 11:51:51 Robitussin Honey Max DM 5 mg-100 mg/5 mL oral liquid 2023 024 [address] [id number], [address], [place], [address], 4 11:52:10 levothyroxi ne 75 mcg tablet 2023 024 [id number] [address], [place], [address], 4 14:54:25 valacyclovi r 1 gram tablet 2023 024 [id number], [address], [place], [address], 4 14:54:24 phentermine 37.5 mg tablet 2023 024 [id number], [address], [place], [address], 4 08:49:48 montelukast 10 mg tablet 2023 024 [id number] [address] [place], [address], 4 08:49:46 furosemide 40 mg tablet 2023 024 [id number], [address], [place], [address], 4 08:49:46 esomeprazol e magnesium 40 mg capsule,del ayed release 2023 024 [email or web address] [facility] #[id number], [address], [place], [address], 4 16:03:35 Patient TargetsNo targets recorded. Patient Instructions Encounter Date Encounter Id Patient Instructions Last Modified By Organization Details Last Modified Time 08/31/2024 [id number] Follow up in 3 months Obtain labs Tests: Complete cologuard Referral: Recommend: Pneumococcal vaccine Tetanus vaccine Shingles vaccine [email or web address] Not available 08/29/2024 14:07:58 Reason for Referral None Reported. Results Created Date Observation Date Name Description Value Unit Range Abnormal Flag Note LastModifiedBy Organization Detail LastModifiedTime 10/06/19 24 10/06/2023 URINA LYSIS COMPL ETE/I RIS W/RFX color YELLOW Not Available [facility] (Lab) [address] [place], [address], 10/06/2023 20:57:55 10/06/19 24 10/06/2023 URINA LYSIS COMPL ETE/I RIS W/RFX appear EXTRA TURBID abnormal Not Available [facility] (Lab) [address] [place], [address], 10/06/2023 20:57:55 10/06/19 24 10/06/2023 URINA LYSIS COMPL ETE/I RIS W/RFX specific gravity 1.020 1.001- 1.030 Not Available [facility] (Lab) [address] [place], [address], 10/06/2023 20:57:55 10/06/19 24 10/06/2023 URINA LYSIS COMPL ETE/I RIS W/RFX pH 5.5 pH_un its 5.0-9. 0 Not Available [facility] (Lab) [address] [place], [address], 10/06/2023 20:57:55 10/06/19 24 10/06/2023 URINA LYSIS COMPL ETE/I RIS W/RFX leukocytes >/=500 junior/u L negati ve- abnormal Not Available [facility] (Lab) [address] [place], [address], 10/06/2023 20:57:55 10/06/19 24 10/06/2023 URINA LYSIS COMPL ETE/I RIS W/RFX nitrite 2+ negati ve- abnormal Not Available [facility] (Lab) [address] [place], [address], 10/06/2023 20:57:55 10/06/19 24 10/06/2023 URINA LYSIS COMPL ETE/I RIS W/RFX protein 30 mg/dL negati ve- abnormal Not Available [facility] (Lab) [address] [place], [address], 10/06/2023 20:57:55 10/06/19 24 10/06/2023 URINA LYSIS COMPL ETE/I RIS W/RFX glucose NORMAL mg/dL normal - Not Available [facility] (Lab) [address] [place], [address], 10/06/2023 20:57:55 10/06/19 24 10/06/2023 URINA LYSIS COMPL ETE/I RIS W/RFX ketones NEGATI VE mg/dL negati ve- Not Available [facility] (Lab) [address] [place], [address], 10/06/2023 20:57:55 10/06/19 24 10/06/2023 URINA LYSIS COMPL ETE/I RIS W/RFX urobilinogen NORMAL mg/dL normal - Not Available [facility] (Lab) [address] [place], [address], 10/06/2023 20:57:55 10/06/19 24 10/06/2023 URINA LYSIS COMPL ETE/I RIS W/RFX bilirubin NEGATI VE mg/dL negati ve- Not Available [facility] (Lab) [address] [place], [address], 10/06/2023 20:57:55 10/06/19 24 10/06/2023 URINA LYSIS COMPL ETE/I RIS W/RFX blood NEGATI VE mg/dL negati ve- Not Available [facility] (Lab[facility] [address] [facility] [place], [address], 10/06/2023 20:57:55 10/06/19 24 10/06/2023 URINA LYSIS COMPL ETE/I RIS W/RFX white blood cells PACKED /i??h pfi?? 0-8 abnormal Not Available [facility] (Lab) [address] [place], [address], 10/06/2023 20:57:55 10/06/19 24 10/06/2023 URINA LYSIS COMPL ETE/I RIS W/RFX red blood cells 11-20 /i??h pfi?? 0-4 abnormal Not Available [facility] (Lab) [address] [place], [address], 10/06/2023 20:57:55 10/06/19 24 10/06/2023 URINA LYSIS COMPL ETE/I RIS W/RFX bacteria MODERA TE abnormal Not Available [facility] (Lab) [address] [place], [address], 10/06/2023 20:57:55 10/06/19 24 10/06/2023 URINA LYSIS COMPL ETE/I RIS W/RFX mucous FEW /i??l pfi?? abnormal Not Available [facility] (Lab) [address] [place], [address], 10/06/2023 20:57:55 10/06/19 24 10/06/2023 URINA LYSIS COMPL ETE/I RIS W/RFX squamous epithelial MODERA TE /i??l pfi?? abnormal Not Available [facility] (Lab) [address] [place], [address], 10/06/2023 20:57:55 10/06/19 24 10/06/2023 URINA LYSIS COMPL ETE/I RIS W/RFX calcium oxalate crystal FEW /i??h pfi?? none seen- abnormal Not Available [facility] (Lab) [address] [place], [address], 10/06/2023 20:57:55 10/06/19 24 10/06/2023 CULTU RE URINE urc ===== ===== ===== ===== ===== ===== ===== ===== ===== ===== ===== ===== ===== ===== ===== ===== ===== ===== ===== ===== ===== ===== ===== ===== CULTU RE NO.: [id number] Exam Statu s: Final Exam Type: CULTU RE URINE ===== ===== ===== ===== ===== ===== ===== ===== ===== ===== ===== ===== ===== ===== ===== ===== ===== ===== ===== ===== ===== ===== ===== ===== Cultu re Repor t: Organ ism #01 Citro bacte r freun dii (citf re) Antib iotic s citfr e Achie vable Achie vable (01) Dosag e Serum Level Urine Level mcg/m l mcg/m l Adenike shane <=2 S 021A Cefaz chela R 021A Cefep humberto <=1 S 021A Cefox itin R 021A Ceftr iaxon e <=1 S 021A Cipro floxa shane <=0.2 5 S 021A Genta micin <=1 S 021A Levof loxac in <=0.1 2 S 021A Merop enem <=0.2 5 S 021A Tobra mycin <=1 S 021A Trmet hopri m.Sul fa <=20 S 021A rt - Test Card Code AST-G N 021A o2 - Final Organ ism CITRO B 021A af - Antib iotic Fami TRIME T 021A af - Antib iotic Famil y Na ap - Pheno type Name WILD 021A ap - Pheno type Name Nitro furan toin <=16 S 021A Not Available [facility] (Lab) [address] [place], [address], 10/08/2023 08:10:44 10/06/19 24 10/06/2023 urina lysis , dipst ick Leukocytes (reference range: negative junior/ l) Modera te Not Available [address], [place], [address], 10/06/2023 08:23:46 10/06/19 24 10/06/2023 urina lysis , dipst ick Nitrite (reference rage: negative mg/dl) positi ve Not Available [address], [place], [address], 10/06/2023 08:23:46 10/06/19 24 10/06/2023 urina lysis , dipst ick Urobilinogen (reference range: 0.2-1 mg/dl) 0.2 Not Available [address], [place], [address], 10/06/2023 08:23:46 10/06/19 24 10/06/2023 urina lysis , dipst ick Protein (reference range: negative mg/dl) Small Not Available [address], [place], [address], 10/06/2023 08:23:46 10/06/19 24 10/06/2023 urina lysis , dipst ick pH (reference range: 5-7) 5.5 Not Available [address], [place], [address], 10/06/2023 08:23:46 10/06/19 24 10/06/2023 urina lysis , dipst ick Blood (reference range: negative Claudy/ l) Hemoly zed: Trace Not Available [address], [place], [address], 10/06/2023 08:23:46 10/06/19 24 10/06/2023 urina lysis , dipst ick Specific Sedan (reference range: 1.005-1.030) 1.025 Not Available [address], [place], [address], 10/06/2023 08:23:46 10/06/19 24 10/06/2023 urina lysis , dipst ick Ketone (reference range: negative mg/dl) Negati ve Not Available [address], [place], [address], 10/06/2023 08:23:46 10/06/19 24 10/06/2023 urina lysis , dipst ick Bilirubin (reference range: negative mg/dl) Negati ve Not Available [address], [place], [address], 10/06/2023 08:23:46 10/06/19 24 10/06/2023 urina lysis , dipst ick Glucose (reference range: negative mg/dl) Negati ve Not Available [address], [place], [address], 10/06/2023 08:23:46 10/06/19 24 10/06/2023 urina lysis , dipst ick Appearance Cloudy Not Available [address], [place], [address], 10/06/2023 08:23:46 10/06/19 24 10/06/2023 urina lysis , dipst ick Color Yellow Not Available [address], [place], [address], 10/06/2023 08:23:46 01/27/20 24 01/28/2024 BASIC METAB OLIC PANEL (8) glucose 109 mg/dL 70-99 above high normal Not Available [facility] ([facility]) [address] [place], [address], 01/28/2024 06:22:21 01/27/20 24 01/28/2024 BASIC METAB OLIC PANEL (8) BUN 13 mg/dL 6-24 Not Available [facility] ([facility]) [address] [place], [address], 01/28/2024 06:22:21 01/27/20 24 01/28/2024 BASIC METAB OLIC PANEL (8) creatinine 0.80 mg/dL 0.57-1 .00 Not Available [facility] ([facility]) [address] [place], [address], 01/28/2024 06:22:21 01/27/20 24 01/28/2024 BASIC METAB OLIC PANEL (8) eGFR 85 mL/mi n/1.7 3 >59 Not Available [facility] ([facility]) [address] [place], [address], 01/28/2024 06:22:21 01/27/20 24 01/28/2024 BASIC METAB OLIC PANEL (8) BUN/creatini ne ratio 16 9-23 Not Available [facility] ([facility]) [address] [place], [address], 01/28/2024 06:22:21 01/27/20 24 01/28/2024 BASIC METAB OLIC PANEL (8) sodium 142 mmol/ L 134-14 4 Not Available [facility] ([facility]) [address] [place], [address], 01/28/2024 06:22:21 01/27/20 24 01/28/2024 BASIC METAB OLIC PANEL (8) potassium 4.8 mmol/ L 3.5-5. 2 Not Available [facility] ([facility]) [address] [place], [address], 01/28/2024 06:22:21 01/27/20 24 01/28/2024 BASIC METAB OLIC PANEL (8) chloride 102 mmol/ L 96-106 Not Available [facility] ([facility]) [address] [place], [address], 01/28/2024 06:22:21 01/27/20 24 01/28/2024 BASIC METAB OLIC PANEL (8) carbon dioxide, total 26 mmol/ L 20-29 Not Available [facility] ([facility]) [address] [place], [address], 01/28/2024 06:22:21 01/27/20 24 01/28/2024 BASIC METAB OLIC PANEL (8) calcium 9.6 mg/dL 8.7-10 .2 Not Available [facility] ([facility]) [address] [place], [address], 01/28/2024 06:22:21 01/27/20 24 01/28/2024 LIPID PANEL cholesterol, total 204 mg/dL 100-19 9 above high normal Not Available [facility] ([facility]) [address] [facility] [place], [address], 01/28/2024 06:22:22 01/27/20 24 01/28/2024 LIPID PANEL triglyceride s 81 mg/dL 0-149 Not Available [facility] ([facility]) [address] [place], [address], 01/28/2024 06:22:22 01/27/20 24 01/28/2024 LIPID PANEL HDL cholesterol 59 mg/dL >39 Not Available [facility] ([facility]) [address] [place], [address], 01/28/2024 06:22:22 01/27/20 24 01/28/2024 LIPID PANEL VLDL cholesterol patrick 15 mg/dL 5-40 Not Available [facility] ([facility]) [address] [place], [address], 01/28/2024 06:22:22 01/27/20 24 01/28/2024 LIPID PANEL LDL chol calc ([facility]) 130 mg/dL 0-99 above high normal Not Available [facility] ([facility]) [address] [place], [address], 01/28/2024 06:22:22 01/27/20 24 01/28/2024 LIPID PANEL comment: [employer] Not Available [facility] ([facility]) [address] [place], [address], 01/28/2024 06:22:22 01/27/20 24 01/28/2024 HEPAT IC FUNCT ION PANEL (7) protein, total 6.7 g/dL 6.0-8. 5 Not Available [facility] ([facility]) [address] [place], [address], 01/28/2024 06:22:23 01/27/20 24 01/28/2024 HEPAT IC FUNCT ION PANEL (7) albumin 4.0 g/dL 3.8-4. 9 Not Available [facility] ([facility]) [address] [facility] [place], [address], 01/28/2024 06:22:23 01/27/20 24 01/28/2024 HEPAT IC FUNCT ION PANEL (7) bilirubin, total 0.3 mg/dL 0.0-1. 2 Not Available [facility] ([facility]) [address] [facility] [place], [address], 01/28/2024 06:22:23 01/27/20 24 01/28/2024 HEPAT IC FUNCT ION PANEL (7) bilirubin, direct 0.11 mg/dL 0.00-0 .40 Not Available [facility] ([facility]) [address] [facility] [place], [address], 01/28/2024 06:22:23 01/27/20 24 01/28/2024 HEPAT IC FUNCT ION PANEL (7) alkaline phosphatase 79 IU/L 44-121 Not Available [facility] ([facility]) [address] [facility] [place], [address], 01/28/2024 06:22:23 01/27/20 24 01/28/2024 HEPAT IC FUNCT ION PANEL (7) AST (SGOT) 20 IU/L 0-40 Not Available [facility] ([facility]) [address] [place], [address], 01/28/2024 06:22:23 01/27/20 24 01/28/2024 HEPAT IC FUNCT ION PANEL (7) ALT (SGPT) 18 IU/L 0-32 Not Available [facility] ([facility]) [address] [place], [address], 01/28/2024 06:22:23 01/27/20 24 01/27/2024 HEMOG LOBIN A1C hemoglobin A1C 5.9 % 4.8-5. 6 above high normal Predi abete s: 5.7 - 6.4 Diabe magdaleno: >6.4 Glyce tristan contr ol for adult s with diabe magdaleno: <7.0 Not Available [facility] ([facility]) [address] [facility], [place], [address], 01/28/2024 06:22:25 01/27/2001/28/2024 THYRO XINE (T4) FREE, DIREC T T4,free(dire ct) 1.18 NG/dL 0.82-1 .77 Not Available [facility] ([facility]) [address] [facility], [place], [address], 01/28/2024 06:22:26 01/27/2001/28/2024 TSH TSH 1.880 uIU/m L 0.450- 4.500 Not Available [facility] [address], [place], [address], 01/28/2024 06:22:27 01/27/2001/28/2024 VITAM IN D, 25-HY DROXY vitamin D, 25-hydroxy 56.0 NG/mL 30.0-1 00.0 Vitam in D defic iency has been defin ed by the Insti tute of Medic ine and an Endoc rine Socie ty pract ice guide line as a level of serum 25-OH vitam in D less than 20 ng/mL (1,2) . The Endoc rine Socie ty went on to [facility] er defin e vitam in D insuf ficie ncy as a level betwe en 21 and 29 ng/mL (2). 1. IOM (Inst itute of Medic ine). 2009. Dieta ry refer ence intak es for calci um and D. Karen chapman [place]: The Natio nal [facility] Press . 2. Rosenda almodovar MF, Maty day [place], [place] off-F tayo i RAINES, et al. Evalu ation , treat ment, and preve ntion of vitam in D defic iency : an Endoc rine Socie ty clini patrick pract ice guide line. JCEM. 2010; 96(7) :1911 -30. Not Available [facility] ([facility]) [address] [place], [address], 01/28/2024 06:22:27 01/27/2001/27/2024 AMBIG ABBRE V BMP8 DEFAU LT ambig abbrev BMP8 default Commen t A hand- writt en panel /prof ile was recei ivonne from your offic e. In accor dance with the [facility] Ambig uous Test Code Polic y dated April 2003, we have compl eted your order by using the close st curre ntly or forme rly recog nized AMA panel . We have jerrell gill Basic Metab olic Panel (8), Test Code #32[address]. If this is not the testi ng you wishe d to recei ve on this speci men, pleas e conta ct the [facility] Clien t Inqui ry/Te chnic al Servi dorita Depar tment to jayesh fy the test order . We appre ciate your busin ess. Not Available [facility] ([facility] [employer]) [address] [facility], [place], [address], 01/28/2024 06:22:28 01/27/2001/27/2024 AMBIG ABBRE V LP DEFAU LT ambig abbrev LP default COMMEN T A hand- writt en panel /prof ile was recei ivonne from your offic e. In accor dance with the [facility] Ambig uous Test Code Polic y dated April 2003, we have compl eted your order by using the close st curre ntly or forme rly recog nized AMA panel . We have jerrell gill Lipid Panel , Test Code #30[address]. If this is not the testi ng you wishe d to recei ve on this speci men, pleas e conta ct the [facility] Clien t Inqui ry/Te chnic al Servi dorita Depar tment to jayesh fy the test order . We appre ciate your busin ess. Not Available [facility] ([facility] [employer]) [address] [facility], [place], [address], 01/28/2024 06:22:29 01/27/20 24 01/27/2024 KRZYSZTOF DAVERE V HFP7 DEFAU LT krzysztof mccormackrev hfp7 default Commen t A hand- writt en panel /prof orozco was recei ivonne from your offic e. In accor dance with the [facility] Krzysztof ballardous Test Code Polic y dated April 2003, we have compl eted your order by using the close st curre ntly or forme rly recog nized AMA panel . We have assig bridget Hepat ic Funct ion Panel (7), Test Code #32[address]. If this is not the testi ng you wishe d to recei ve on this speci men, pleas e conta ct the [facility] Clien t Inqui ry/Te chnic al Servi dorita Depar tment to jayesh fy the test order . We appre ciate your busin ess. Not Available [facility] ([facility]) [address] [place], [address], 01/28/2024 06:22:30 09/12/20 24 09/13/2024 TSH+F REE T4 TSH 1.040 uIU/m L 0.450- 4.500 normal Not Available [facility] ([facility]) [address] [place], [address], 09/13/2024 08:22:57 09/12/20 24 09/13/2024 TSH+F REE T4 T4,free(dire ct) 1.33 NG/dL 0.82-1 .77 normal Not Available [facility] ([facility]) [address] [place], [address], 09/13/2024 08:22:57 09/12/20 24 09/13/2024 CBC WITH DIFFE RENTI AL/PL ATELE T WBC 10.0 x10e3 /uL 3.4-10 .8 normal Not Available [facility] ([facility]) [address] [place], [address], 09/13/2024 08:22:58 09/12/20 24 09/13/2024 CBC WITH DIFFE RENTI AL/PL ATELE T RBC 4.47 x10e6 /uL 3.77-5 .28 normal Not Available [facility] ([facility]) [address] [place], [address], 09/13/2024 08:22:58 09/12/20 24 09/13/2024 CBC WITH DIFFE RENTI AL/PL ATELE T hemoglobin 14.3 g/dL 11.1-1 5.9 normal Not Available [facility] ([facility]) [address] [place], [address], 09/13/2024 08:22:58 09/12/20 24 09/13/2024 CBC WITH DIFFE RENTI AL/PL ATELE T hematocrit 42.5 % 34.0-4 6.6 normal Not Available [facility] ([facility]) [address] [place], [address], 09/13/2024 08:22:58 09/12/20 24 09/13/2024 CBC WITH DIFFE RENTI AL/PL ATELE T MCV 95 fL 79-97 normal Not Available [facility] ([facility]) [address] [place], [address], 09/13/2024 08:22:58 09/12/20 24 09/13/2024 CBC WITH DIFFE RENTI AL/PL ATELE T MCH 32.0 pg 26.6-3 3.0 normal Not Available [facility] ([facility]) [address] [place], [address], 09/13/2024 08:22:58 09/12/20 24 09/13/2024 CBC WITH DIFFE RENTI AL/PL ATELE T MCHC 33.6 g/dL 31.5-3 5.7 normal Not Available [facility] ([facility]) [address] [place], [address], 09/13/2024 08:22:58 09/12/20 24 09/13/2024 CBC WITH DIFFE RENTI AL/PL ATELE T RDW 13.0 % 11.7-1 5.4 Not Available [facility] ([facility]) [address] [facility], [place], [address], 09/13/2024 08:22:58 09/12/20 24 09/13/2024 CBC WITH DIFFE RENTI AL/PL ATELE T platelets 341 x10e3 /uL 150-45 0 normal Not Available [facility] ([facility]) [address] [facility], [place], [address], 09/13/2024 08:22:58 09/12/20 24 09/13/2024 CBC WITH DIFFE RENTI AL/PL ATELE T neutrophils 68 % not estab. normal Not Available [facility] ([facility]) [address] [facility], [place], [address], 09/13/2024 08:22:58 09/12/20 24 09/13/2024 CBC WITH DIFFE RENTI AL/PL ATELE T lymphs 20 % not estab. normal Not Available [facility] ([facility]) [address] [facility], [place], [address], 09/13/2024 08:22:58 09/12/20 24 09/13/2024 CBC WITH DIFFE RENTI AL/PL ATELE T monocytes 10 % not estab. normal Not Available [facility] ([facility]) [address] [facility], [place], [address], 09/13/2024 08:22:58 09/12/20 24 09/13/2024 CBC WITH DIFFE RENTI AL/PL ATELE T eos 1 % not estab. normal Not Available [facility] ([facility]) [address] [facility], [place], [address], 09/13/2024 08:22:58 09/12/20 24 09/13/2024 CBC WITH DIFFE RENTI AL/PL ATELE T basos 1 % not estab. normal Not Available [facility] ([facility]) [address] [place], [address], 09/13/2024 08:22:58 09/12/20 24 09/13/2024 CBC WITH DIFFE RENTI AL/PL ATELE T immature cells [employer] Not Available [facility] ([facility]) [address] [place], [address], 09/13/2024 08:22:58 09/12/20 24 09/13/2024 CBC WITH DIFFE RENTI AL/PL ATELE T neutrophils (absolute) 6.7 x10e3 /uL 1.4-7. 0 normal Not Available [facility] ([facility]) [address] [place], [address], 09/13/2024 08:22:58 09/12/20 24 09/13/2024 CBC WITH DIFFE RENTI AL/PL ATELE T lymphs (absolute) 2.0 x10e3 /uL 0.7-3. 1 normal Not Available [facility] ([facility]) [address] [place], [address], 09/13/2024 08:22:58 09/12/20 24 09/13/2024 CBC WITH DIFFE RENTI AL/PL ATELE T monocytes(ab solute) 1.0 x10e3 /uL 0.1-0. 9 above high normal Not Available [facility] ([facility]) [address] [place], [address], 09/13/2024 08:22:58 09/12/20 24 09/13/2024 CBC WITH DIFFE RENTI AL/PL ATELE T eos (absolute) 0.1 x10e3 /uL 0.0-0. 4 normal Not Available [facility] ([facility]) [address] [place], [address], 09/13/2024 08:22:58 09/12/20 24 09/13/2024 CBC WITH DIFFE RENTI AL/PL ATELE T baso (absolute) 0.1 x10e3 /uL 0.0-0. 2 normal Not Available [facility] ([facility]) [address] [facility], [place], [address], 09/13/2024 08:22:58 09/12/20 24 09/13/2024 CBC WITH DIFFE RENTI AL/PL ATELE T immature granulocytes 0 % not estab. Not Available [facility] ([facility]) [address] [facility], [place], [address], 09/13/2024 08:22:58 09/12/20 24 09/13/2024 CBC WITH DIFFE RENTI AL/PL ATELE T immature grans (abs) 0.0 x10e3 /uL 0.0-0. 1 Not Available [facility] ([facility]) [address] [facility], [place], [address], 09/13/2024 08:22:58 09/12/20 24 09/13/2024 CBC WITH DIFFE RENTI AL/PL ATELE T NRBC [employer] Not Available [facility] (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) [address] [facility], [place], [address], 09/13/2024 08:22:58 09/12/20 24 09/13/2024 COMP. METAB OLIC PANEL (14) glucose 98 mg/dL 70-99 normal Not Available [facility] ([facility]) [address] [facility], [place], [address], 09/13/2024 08:22:59 09/12/20 24 09/13/2024 COMP. METAB OLIC PANEL (14) BUN 10 mg/dL 8-27 normal Not Available [facility] ([facility]) [address] [facility] [place], [address], 09/13/2024 08:22:59 09/12/20 24 09/13/2024 COMP. METAB OLIC PANEL (14) creatinine 0.76 mg/dL 0.57-1 .00 normal Not Available [facility] ([facility]) [address] [facility] [place], [address], 09/13/2024 08:22:59 09/12/20 24 09/13/2024 COMP. METAB OLIC PANEL (14) eGFR 90 mL/mi n/1.7 3 >59 normal Not Available [facility] ([facility]) [address] [facility], [place], [address], 09/13/2024 08:22:59 09/12/20 24 09/13/2024 COMP. METAB OLIC PANEL (14) BUN/creatini ne ratio 13 12-28 normal Not Available [facility] ([facility]) [address] [facility] [place], [address], 09/13/2024 08:22:59 09/12/20 24 09/13/2024 COMP. METAB OLIC PANEL (14) sodium 142 mmol/ L 134-14 4 normal Not Available [facility] ([facility]) [address] [facility] [place], [address], 09/13/2024 08:22:59 09/12/20 24 09/13/2024 COMP. METAB OLIC PANEL (14) potassium 4.2 mmol/ L 3.5-5. 2 normal Not Available [facility] ([facility]) [address] [facility] [place], [address], 09/13/2024 08:22:59 09/12/20 24 09/13/2024 COMP. METAB OLIC PANEL (14) chloride 100 mmol/ L 96-106 normal Not Available [facility] ([facility]) [address] [place], [address], 09/13/2024 08:22:59 09/12/20 24 09/13/2024 COMP. METAB OLIC PANEL (14) carbon dioxide, total 27 mmol/ L 20-29 normal Not Available [facility] ([facility]) [address] [place], [address], 09/13/2024 08:22:59 09/12/20 24 09/13/2024 COMP. METAB OLIC PANEL (14) calcium 9.4 mg/dL 8.7-10 .3 normal Not Available [facility] ([facility]) [address] [place], [address], 09/13/2024 08:22:59 09/12/20 24 09/13/2024 COMP. METAB OLIC PANEL (14) protein, total 7.2 g/dL 6.0-8. 5 normal Not Available [facility] ([facility]) [address] [place], [address], 09/13/2024 08:22:59 09/12/20 24 09/13/2024 COMP. METAB OLIC PANEL (14) albumin 4.3 g/dL 3.8-4. 9 normal Not Available [facility] ([facility]) [address] [place], [address], 09/13/2024 08:22:59 09/12/20 24 09/13/2024 COMP. METAB OLIC PANEL (14) globulin, total 2.9 g/dL 1.5-4. 5 Not Available [facility] ([facility]) [address] [place], [address], 09/13/2024 08:22:59 09/12/20 24 09/13/2024 COMP. METAB OLIC PANEL (14) bilirubin, total 0.4 mg/dL 0.0-1. 2 normal Not Available [facility] ([facility]) [address] [facility] [place], [address], 09/13/2024 08:22:59 09/12/20 24 09/13/2024 COMP. METAB OLIC PANEL (14) alkaline phosphatase 99 IU/L 44-121 normal Not Available [facility] ([facility]) [address] [facility] [place], [address], 09/13/2024 08:22:59 09/12/20 24 09/13/2024 COMP. METAB OLIC PANEL (14) AST (SGOT) 19 IU/L 0-40 normal Not Available [facility] ([facility]) [address] [facility] [place], [address], 09/13/2024 08:22:59 09/12/20 24 09/13/2024 COMP. METAB OLIC PANEL (14) ALT (SGPT) 21 IU/L 0-32 normal Not Available [facility] ([facility]) [address] [facility] [place], [address], 09/13/2024 08:22:59 09/12/20 24 09/13/2024 LIPID PANEL cholesterol, total 204 mg/dL 100-19 9 above high normal Not Available [facility] ([facility]) [address] [facility] [place], [address], 09/13/2024 08:23:01 09/12/20 24 09/13/2024 LIPID PANEL triglyceride s 108 mg/dL 0-149 normal Not Available [facility] ([facility]) [address] [facility] [place], [address], 09/13/2024 08:23:01 09/12/20 24 09/13/2024 LIPID PANEL HDL cholesterol 61 mg/dL >39 normal Not Available [facility] ([facility]) [address] [facility] [place], [address], 09/13/2024 08:23:01 09/12/20 24 09/13/2024 LIPID PANEL VLDL cholesterol patrick 19 mg/dL 5-40 Not Available [facility] ([facility]) [address] [facility], [place], [address], 09/13/2024 08:23:01 09/12/20 24 09/13/2024 LIPID PANEL LDL chol calc ([facility]) 124 mg/dL 0-99 above high normal Not Available [facility] (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) [address] [facility], [place], [address], 09/13/2024 08:23:01 09/12/20 24 09/13/2024 HCV ANTIB DAWN RFX TO QUANT PCR HCV Ab NON REACTI VE non reacti ve Not Available [facility] ([facility]) [address] [facility], [place], [address], 09/13/2024 08:23:02 09/12/2009/13/2024 HCV ANTIB DAWN RFX TO QUANT PCR interpretati on: COMMEN T Not infec doug with HCV unles s early or acute infec tion is suspe cted (whic h may be delay ed in an immun ocomp romis ed indiv idual ), or other evide nce exist s to indic ate HCV infec tion. Not Available [facility] ([facility]) [address] [facility], [place], [address], 09/13/2024 08:23:02 09/12/2009/13/2024 HEMOG LOBIN A1C hemoglobin A1C 6.0 % 4.8-5. 6 above high normal Predi abete s: 5.7 - 6.4 Diabe magdaleno: >6.4 Glyce tristan contr ol for adult s with diabe magdaleno: <7.0 Not Available [facility] ([facility]) [address] [facility], [place], [address], 09/13/2024 08:23:03 09/22/20 24 09/22/2024 COLOG UARD cologuard result reportable NEGATI VE negati ve normal NEGAT SKYLER TEST RESUL T. A negat skyler Colog uard resul t indic ates a low likel ihood that a color ectal cance r (CRC) or advan niko adeno ma (silvia omato us polyp s with more advan niko pre-m align ant featu res) is prese nt. The chanc e that a perso n with a negat skyler Colog uard test has a color ectal cance r is less than 1 in 1500 (nega tive predi ctive value >99.9 %) or has an advan niko adeno ma is less than 5.3% (nega tive predi ctive value 94.7% ). These data are based on a prosp ectiv e cross -sect ional study of ,00 0 indiv idual s at [facility] risk for color ectal cance r who were scree bridget with both Colog uard and colon oscop y. (Demetrice Orozco. et al, N Engl J Med 2014; 370(1 4):12 86-12 97) The john l value (refe rence range ) for this assay is negat skyler. COLOG UARD RE-SC REENI NG RECOM MENDA TION: Perio dic color ectal cance r scree franck is an impor tant part of preve ntive healt hcare for asymp tomat ic indiv idual s at [facility] ge risk for color ectal cance r. Follo wing a negat skyler Colog uard resul t, the Ameri can Cance r Socie ty and U.S. Multi -Soci ety Task Force scree franck guide lines recom mend a Colog uard re-sc reeni ng inter mabel of 3 years . Refer ences : Ameri can Cance r Socie ty Guide line for Color ectal Cance r Scree franck: https ://margaret w.can cer.o rg/ca ncer/ colon -rect al-ca ncer/ detec tion- diagn osis- stagi ng/ac s-rec ommen datio ns.ht ml.; Fransisco DK, Karla dailey CR, Valerie MirzaK, Color ectal Cance r Scree franck: Recom menda tions for Physi cians and Patie nts from the U.S. Multi -Soci ety Task Force on Color ectal Cance r Scree franck , Beatris rivera y 2017; 112:1 016-1 030. TEST DESCR IPTIO N: [place] site algor ithmi c alvina sis of stool DNA-b iotadeo kers with hemog lobin immun oassa y. Quant itati ve value s of indiv idual bioma rkers are not repor table and are not assoc iated with ind idual bioma rker resul t refer ence range s. Colog uard is inten ded for color ectal cance r scree franck of adult s of eithe r sex, 45 years or older , who are at [facility] for color ectal cance r (CRC) . Colog uard has been appro ivonne for use by the U.S. FDA. The perfo rmanc e of Colog uard was estab lishe d in a cross secti onal study of [facility] adult s aged 50-84 . Colog uard perfo rmanc e in patie nts ages 45 to 49 years was estim ated by sub-g roup alvina sis of near- age group s. Colon oscop ies perfo rmed for a posit skyler resul t may find as the most clini debra signi ficchevy t lesio n: color ectal cance r [4.0% ], advan niko adeno ma (incl uding sessi le irene doug polyp s great er than or equal to 1cm diame ter) [20%] or non- advan niko adeno ma [31%] ; or no color ectal neopl anish [45%] . These estim ates are deriv ed from a prosp ectiv e cross -sect ional scree franck study of 10,00 0 indiv idual s at [facility] risk for color ectal cance r who were scree bridget with both Colog uard and colon oscop y. (Demetrice Mondragon et al, N Engl J Med 2014; 370(1 4):12 86-12 97.) Colog uard may produ ce a false negat skyler or false posit skyler resul t (no color ectal cance r or preca ncero us polyp prese nt at colon oscop y follo w up). A negat skyler Colog uard test resul t does not guara ntee the absen ce of CRC or advan niko adeno ma (pre- cance r). The curre nt Colog uard scregilbert juárez inter mabel is every 3 years . (Amer ican Cance r Socie ty and U.S. Multi -Soci ety Task Force ). Colog uard perfo rmanc e data in a ,00 0 patie nt pivot al study using colon oscop y as the refer ence metho d can be acces sed at the follo wing locat ion: www.e xactl abs.c om/re sulelpidio . Addit ional descr iptio n of the Colog uard test proce ss, warni ngs and preca ution s can be found at www.c ologu phill.c om. Not Available [facility] (Cologuard Orders Only) [address], [place], [address], 10/01/2024 05:46:44 09/16/20 23 09/16/2023 MAMMO , sharad juárez, digit al, bilat eral No observ ation record ed. [email or web address] [facility] [address], [place], [address], 10/06/2023 12:57:02 01/27/20 24 01/27/2024 XR, chest , 2 view No observ ation record ed. [email or web address] [facility] [address], [place], [address], 03/17/2024 16:00:57 01/27/20 24 01/27/2024 XR, chest , 2 view No observ ation record ed. [email or web address] [facility] [address], [place], [address], 02/20/2024 19:33:50 09/23/20 24 09/23/2024 ankle brach ial index No observ ation record ed. [email or web address] [facility] [address], [place], [address], 10/09/2024 18:09:54 Result Notes None recorded. Problems Name Problem SNOMED Code Status Onset Date Resolution Date Notes Provider Name and Address Organization Details Recorded Time Fibromyalgia 247512856 Active 2020 Evelyn Stephenson APRN [address], [place], [address], [place] 4 14:02:01 Depressive disorder 63941186 Active 2020 Evelyn Stephenson APRN [address], [address], [place], [address], [place] 4 14:01:54 Hypothyroidism 32516830 Active 2020 Evelyn Stephenson APRN [address], [place], [address], [place] 4 14:02:10 Hyperlipidemia 88238671 Active 2020 Evelyn Stephenson APRN [address], [place], [address], [place] 4 14:02:05 Obstructive sleep apnea syndrome 11676725 Active 2020 on CPAP Evelyn Stephenson APRN [address], [place], [address], [place] 4 14:02:16 Eczema 88562950 Active 2022 Evelyn Stephenson APRN [address], [address], [place], [address], [place] 4 14:01:56 Adult health examination Active 2022 Amy Molina MD [address], [address], [place], [address], [place] [facility] 3 18:38:25 Vitamin D deficiency 11303184 Active 2022 Evelyn Stephenson APRN [address], [address], [place], [address], [place] [facility] 4 14:02:27 Carotid artery stenosis 50334888 Active 2022 Evelyn Stephenson APRN [address], [address], [place], [address], [place] [facility] 4 14:01:52 Prediabetes 956568085 Active 2022 Evelyn Stephenson APRN [address], [address], [place], [address], [place] [facility] 4 14:02:12 Chest pain 76508830 Active 2022 Amy Molina MD [address], [address], [place], [address], [place] [facility] 3 08:47:50 Dysuria 38688218 Active 2022 Fiona Cutler LPN null, [place] [facility] 3 14:21:56 Acute urinary tract infection 643904053 Active 2022 Amy Molina MD [address], [address], [place], [address], [place] [facility] 3 18:03:29 Increased frequency of urination 506054340 Active 2022 Fiona Cutler LPN null, [place] [facility] 3 14:57:09 Motion sickness 80669294 Active 2023 Amy Molina MD [address], [address], [place], [address], [place] [facility] 4 08:35:38 Cough 44952678 Active 2023 Amy Molina MD [address], [address], [place], [address], [place] 4 13:41:44 Edema of lower extremity 604004497 Active 2023 Amy Molina MD [address], [address], [place], [address], [place] 4 08:35:23 Persistent cough 127799244 Active 2023 Amy Molina MD [address], [address], [place], [address], [place] 4 08:42:49 Gastroesophage al reflux disease without esophagitis 049953770 Active 2023 Evelyn Stephenson APRN [address], [address], [place], [address], [place] 4 14:02:02 Ankle edema 81250361 Active 2023 Evelyn Stephenson APRN [address], [address], [place], [address], [place] 4 12:16:06 Paresthesia of lower extremity 068702831 Active 2024 Evelyn Stephenson APRN [address], [place], [address], [place] 5 10:45:37 Problem Notes None recorded. Procedures Surgical History Date Name Laterality Status Provider Name and Address Organization Details Recorded Time 09/16/20 Most Recent Mammogram completed Fiona Cutler LPN [employer] 09/18/2023 14:53:21 Hysterectomy completed Not Available [facility] 12/03/2022 22:43:11 Foot Surgery completed DONN Barrera [employer] 08/31/2024 11:58:03 Imaging Results None recorded. Procedure Notes None recorded. Medical Equipment None Reported. Allergies No known drug allergies Medications Name Sig Start Date Stop Date Status Note LastModified by Organization Details LastModified Time Prescriptio n - Prior Authorizati on Request 01/25 completed Not Available Not Available Not Available amoxicillin 500 mg capsule TAKE 1 CAPSULE BY MOUTH 4 TIMES A DAY UNTIL FINISHED 03/05 completed Not Available Not Available Not Available furosemide 40 mg tablet TAKE 1 TABLET BY MOUTH EVERY MORNING AND 1/2 TABLET AT NOON active Not Available Not Available No t Available doxycycline hyclate 100 mg capsule Take 1 capsule twice a day by oral route for 7 days. active Not Available Not Available No t Available azithromyci n 250 mg tablet TAKE 2 TABLETS BY MOUTH TODAY, THEN TAKE 1 TABLET DAILY FOR 4 DAYS DIRECTED 01/25 completed Not Available Not Available Not Available benzonatate 200 mg capsule Take 1 capsule 3 times a day by oral route as needed. 08/31 completed Not Available Not Available Not Available valacyclovi r 1 gram tablet TAKE 1 TABLET BY MOUTH EVERY DAY active Not Available Not Available No t Available hydrocodone 5 mg-acetamin ophen 325 mg tablet TAKE 1 TABLET BY MOUTH 1 HOUR BEFORE PROCEDURE , THEN EVERY 6 HOURS NEEDED active Not Available Not Available No t Available urea 40 % topical cream APPLY TO THE AFFECTED AREA(S) BY TOPICAL ROUTE 2 TIMES PER DAY 2022 active Not Available Not Available Not Avai lable ondansetron HCl 4 mg tablet TAKE 1 TABLET BY MOUTH 1 HOUR BEFORE PROCEDURE active Not Available Not Available No t Available famotidine 40 mg tablet TAKE 1 TABLET BY MOUTH EVERY DAY active Not Available Not Available No t Available prednisone 20 mg tablet TAKE 2 TABLETS BY MOUTH EVERY DAY FOR 5 DAYS 08/31 completed Not Available Not Available Not Available phentermine 37.5 mg tablet TAKE 1 TABLET BY MOUTH EVERY DAY active Not Available Not Available No t Available ciprofloxac in 250 mg tablet Take 1 tablet twice a day by oral route for 7 days. active Not Available Not Available No t Available valacyclovi r 500 mg tablet TK 2 TS PO D 02/04 completed Not Available Not Available Not Available sulfamethox azole 800 mg-trimetho prim 160 mg tablet Take 1 tablet every 12 hours by oral route for 7 days. 01/25 completed Not Available Not Available Not Available aspirin 81 mg tablet,reema yed release Take 1 tablet every day by oral route. 2020 active Not Available Not Available Not Avai lable levothyroxi ne 75 mcg tablet TAKE 1 TABLET BY MOUTH EVERY DAY active Not Available Not Available No t Available nortriptyli ne 25 mg capsule TAKE 1 CAPSULE BY MOUTH EVERYDAY AT BEDTIME 2024 active Not Available Not Available Not Avai lable levothyroxi ne 50 mcg tablet TAKE 1 TABLET BY MOUTH DAILY 03/18 completed Not Available Not Available Not Available cephalexin 500 mg capsule TAKE 1 CAPSULE BY MOUTH THREE TIMES A DAY FOR 7 DAYS active Not Available Not Available No t Available esomeprazol e magnesium 40 mg capsule,del ayed release TAKE 1 CAPSULE BY MOUTH EVERY DAY active Not Available Not Available No t Available montelukast 10 mg tablet TAKE 1 TABLET BY MOUTH EVERY DAY active Not Available Not Available No t Available furosemide 20 mg tablet TAKE 1 - 2 TABLETS BY MOUTH EVERY MORNING NEEDED FOR EDEMA active Not Available Not Available No t Available gabapentin 100 mg capsule Take 1 capsule 3 times a day by oral route as directed, for numbness/ tingling. active Not Available Not Available No t Available lovastatin 20 mg tablet TAKE 1 TABLET BY MOUTH EVERY DAY 2024 active Not Available Not Available Not Avai lable scopolamine 1 mg over 3 days transdermal patch apply behind ear q72 hours, place patch 4 hours before boarding ship 01/25 completed Not Available Not Available Not Available methylpredn isolone 4 mg tablets in a dose pack Take 1 dose pk by oral route. 08/29 completed Not Available Not Available Not Available albuterol sulfate HFA 90 mcg/actuati on aerosol inhaler Inhale 2 puffs every 4 hours by inhalatio n route. 01/25 completed Not Available Not Available Not Available doxycycline hyclate 100 mg tablet TAKE 1 TABLET BY MOUTH TWICE A DAY FOR 7 DAYS 01/25 completed Not Available Not Available Not Available ipratropium bromide 21 mcg (0.03 %) nasal spray SPRAY 2 SPRAYS INTO EACH NOSTRIL TWICE A DAY active Not Available Not Available No t Available diazepam 5 mg tablet TAKE 3 TABLETS BY MOUTH 1 HOUR BEFORE PROCEDURE , THEN EVERY 6 HOURS THEREAFTE R, NEEDED active Not Available Not Available No t Available esomeprazol e magnesium 20 mg capsule,del ayed release Take 1 capsule every day by oral route. 06/13 completed Not Available Not Available Not Available escitalopra m 5 mg tablet Take 1 tablet every day by oral route. active Not Available Not Available No t Available nitrofurant oin monohydrate /macrocryst als 100 mg capsule TAKE 1 CAPSULE BY MOUTH EVERY 12 HOURS FOR 7 DAYS 01/25 completed Not Available Not Available Not Available budesonide 1 mg/2 mL suspension for nebulizatio n EMPTY ONE VIAL INTO IDS, ADD SALINE PACKET AND DISTILLED WATER, THEN IRRIGATE ONCE DAILY active Not Available Not Available No t Available COVID-19 At-Home Test kit FOLLOW INSTRUCTI ONS INCLUDED WITH THE PACKAGE. active Not Available Not Available No t Available Mounjaro 2.5 mg/0.5 mL subcutaneou s pen injector 09/17 completed Not Available Not Available Not Available Ozempic 0.25 mg or 0.5 mg (2 mg/3 mL) subcutaneou s pen injector 01/25 completed Not Available Not Available Not Available Robitussin Honey Max DM 5 mg-100 mg/5 mL oral liquid Take 10 mL every 4-6 hours by oral route as needed. 08/31 completed Not Available Not Available Not Available Vitals Date Recorded Body height Provider Name an d Address Organization Details Last Updated DateTime 10/06/2023 170.18 cm Bernadette Ward RN [facility] [employer] 10/06/2023 09:08:42 Date Recorded Body height Body mass index (BMI) Body weight Body temperature Heart rate Oxygen saturation Oxygen saturation in Arterial blood by Pulse oximetry Systolic And Diastolic Provider Name and Address Organization Details Last Updated DateTime 4 170.18 cm 47.1 kg/m2 617515. 3 g 97.3 [degF] 91 /min 94 % 94 % 138/76 mm[Hg] Kamari Kelley RN [facility] [employer] 08:16:01 Date Recorded Body height Body mass index (BMI) Body weight Systolic And Diastolic Provider Name and Address Organization Details Last Updated DateTime 05/11/2024 170.18 cm 46 kg/m2 593814.16 g 142/78 mm[Hg] Kamari Kelley RN [facility] [employer] 05/11/2024 08:26:14 Date Recorded Body height Body mass index (BMI) Body weight Body temperature Heart rate Oxygen saturation Oxygen saturation in Arterial blood by Pulse oximetry Systolic And Diastolic Provider Name and Address Organization Details Last Updated DateTime 4 170.18 cm 46 kg/m2 937948. 16 g 100.1 [degF] 101 /min 98 % 98 % 140/78 mm[Hg] Rylie Alston RN [facility] [employer] [facility] 4 14:32:54 Date Recorded Body height Body mass index (BMI) Body weight Body temperature Heart rate Systolic And Diastolic Provider Name and Address Organization Details Last Updated DateTime 4 170.18 cm 44.5 kg/m2 421267. 23 g 97.7 [degF] 90 /min 126/82 mm[Hg] DONN Barrera [facility] [employer] [facility] 4 12:00:36 Social History Question Answer Notes LastModified by Organization Details LastModified Time Tobacco Smoking Status Never Smoker Not Available [facility] 12/03/2022 22:42:57 Do You Have An Advance Directive? Yes Information not available 08/31/2024 Are You Blind Or Do You Have Difficulty Seeing? No [id number] Information not available 12/03/2022 What Is Your Level Of Caffeine Consumption? Occasional [id number] Information not available 12/03/2022 How Much Tobacco Do You Chew? None [id number] Information not available 12/03/2022 Are You Deaf Or Do You Have Serious Difficulty Hearing? No [id number] Information not available 12/03/2022 What Type Of Diet Are You Following? SPECIFIC Lazy Keto Information not available 08/31/2024 Which Illicit Or Recreational Drugs Have You Used? No [id number] Information not available 12/03/2022 What Is The Highest Grade Or Level Of School You Have Completed Or The Highest Degree You Have Received? [id number] Information not available 08/31/2024 What Is The Fluoride Status Of Your Home? Unknown Information not available 08/31/2024 Are There Any Guns Present In Your Home? No [id number] Information not available 12/03/2022 Where Do You Live? SingleLevelHouse With Basement Information not available 08/31/2024 Do You Have A Medical Power Of Eyedotter? Yes Information not available 08/31/2024 What Was The Date Of Your Most Recent Tobacco Screening? 08/31/2024 Information not available 08/31/2024 Have You Ever Been Counseled For Unhealthy Alcohol Use? No [id number] Information not available 12/03/2022 Do You Have Any Pets? No Information not available 08/31/2024 What Is Your Relationship Status? Information not available 08/31/2024 Do You Use Your Seat Belt Or Car Seat Routinely? Yes Information not available 08/31/2024 Do You Have Smoke And Carbon Monoxide Detectors In Your Home? Yes Information not available 08/31/2024 Are You Passively Exposed To Smoke? No Information not available 08/31/2024 Are There Any Smokers In Your House? No Information not available 08/31/2024 Has Tobacco Cessation Counseling Been Provided? No N/a Information not available 08/31/2024 Have You Recently Traveled Abroad? No [id number] Information not available 12/03/2022 Do You Have Difficulty Walking Or Climbing Stairs? No MIGRATION.0301 [id number] Information not available 12/03/2022 Do You Have Any Dietary Restrictions? No MIGRATION.0301 [id number] Information not available 12/03/2022 Sex: Unknown Functional Status Question Answer Note LastModified by Organizat ion Details LastModified Time Do you use any illicit or recreational drugs? No [id number] Information not available 12/03/2022 Do you or have you ever used any other forms of tobacco or nicotine? No Information not available 08/31/2024 What is your level of alcohol consumption? Occasional [id number] Information not available 12/03/2022 Do you or have you ever used smokeless tobacco? Never used smokeless tobacco MIGRATION.[id number] Information not available 12/03/2022 Are you currently employed? Yes Information not available 08/31/2024 Are you able to walk? [place]WOREST MIGRATION.101125 [id number] Information not available 12/03/2022 Do you have difficulty doing errands alone? No MIGRATION.[id number] Information not available 12/03/2022 Are you able to care for yourself? 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 No MIGRATION.[id number] 8060 Information not available 12/03/2022 Do you or have you ever used e-cigarettes or vape? Never used electronic cigarettes MIGRATION.[id number] [id number] Information not available 12/03/2022 What is your exercise level? None MIGRATION.[id number] Information not available 12/03/2022 Mental Status Question Answer Note LastModified by Organizat ion Details LastModified Time Do you feel stressed (tense, restless, nervous, or anxious, or unable to sleep at night)? [id number] [facility] Information not available 08/31/2024 Do you have difficulty concentrating, remembering or making decisions? No MIGRATION.[id number] 26 Information not available 12/03/2022 Family History Relationship Description Onset Age of this Age Resolved Age Notes LastModified by Organization Details LastModified Time Mother Hypertensive disorder [id number] Not available 12/03/2022 22:43:14 Mother Malignant tumor of cervix MIGRATION.204 [id number] Not available 12/03/2022 22:43:14 Mother Cerebrovascu lar accident MIGRATION.864 [id number] Not available 12/03/2022 22:43:14 Mother Myocardial infarction MIGRATION.401 [id number] Not available 12/03/2022 22:43:14 Brother Diabetes mellitus MIGRATION.960 [id number] Not available 12/03/2022 22:43:14 Father Malignant neoplasm of lung MIGRATION.478 [id number] Not available 12/03/2022 22:43:14 Father Chronic obstructive pulmonary disease MIGRATION.264 [id number] Not available 12/03/2022 22:43:14 Medical History Condition Response BLINDNESS N RHEUMATIC FEVER N KIDNEY STONES N BLADDER PROBLEMS Y MRSA N OTHER # 1 N POLIO N LUNG DISEASE/DISORDER N RADIATION / CHEMOTHERAPY N COPD N Other # 2 N BLOOD DISEASES N SURGERY N EAR OR HEARING PROBLEMS N MUMPS N BOWEL PROBLEMS N FEMALE PROBLEMS / INFECTIONS N DEPRESSION (INCLUDING POST ) Y STROKE/TIA N THYROID DISEASE Y ULCERS N BENIGN PROSTATIC HYPERPLASIA N MEASLES N CERVICALGIA N TB SKIN TEST N MYOCARDIAL INFARCTION N PARAPELGIA N OBESITY N GERD/NAUSEA N ANEURYSM N URINARY/BLADDER/KIDNEY PROBLEMS N CORONARY ARTERY DISEASE (CAD) N MENIERE'S DISEASE N ADDICTION CONCERNS N ENDOMETRIOSIS N USE OF BLOOD THINNERS N SKIN PROBLEMS N EMPHYSEMA N GASTROINTESTINAL DISORDER N MUSCLE,JOINT OR BONE PROBLEMS N GASTROINTESTINAL BLEEDING N BLOOD CLOTS N ASTHMA N CATARACTS N ERECTILE DYSFUNCTION N GI PROBLEMS N CHF N Low Testosterone N NEUROPATHY N INFERTILITY N AIDS/HIV N FRACTURES N CHEMOTHERAPY / RADIATION N VISION/EYE PROBLEMS Y LIVER DISEASE N MALE HYPOGONADISM N HYPERTENSION N TOURETTE'S N ANXIETY DISORDER N BLOOD TRANSFUSION N ANEMIA/BLOOD DISORDER N CHRONIC EAR INFECTIONS N BRONCHITIS N TUBERCULOSIS N GLAUCOMA N FOOT PROBLEM Y DIVERTICULITIS N CHICKENPOX N SLEEP APNEA Y ALLERGIES/HAYFEVER N INFECTIOUS DISEASE N HEART ARRHYTHMIA N PROSTATE N INSOMNIA N HIGH CHOLESTEROL / HYPERLIPIDEMIA Y HYPERTHYROIDISM N EYE PROBLEMS N EATING DISORDER N EDEMA N CHRONIC PAIN SYNDROME N CAROTID BLOCKAGE N CONSTIPATION N BACK / NECK PROBLEMS Y HAVE YOU BEEN HOSPITALIZED OR SEEN IN [facility] IN THE PAST YEAR ? N ATHEROSCLEROSIS N BREAST PROBLEMS N DIALYSIS N ECZEMA N FIBROMYALGIA N OSTEOPOROSIS N ARTHRITIS Y NO SIGNIFICANT PAST MEDICAL HISTORY N APPENDICITIS N DIABETES, TYPE N BAD TEETH N HEARTBURN / REFLUX Y ADD/ADHD N AUTISM SPECTRUM DISORDER (ASD) N HEPATITIS / LIVER DISEASE N PULMONARY DISEASE N GOUT N SLEEP DISORDER N ALZHEIMER'S DISEASE N PAIN N HERPES Y DEMENTIA N HEADACHES/MIGRAINES Y SEIZURES/EPILEPSY N VASCULAR DISEASE N PACEMAKER N DIZZINESS Y HEART DISEASE/HEART PROBLEMS N KIDNEY DISEASE N DEVELOPMENTAL OR BEHAVIORAL DISORDERS N MULTIPLE SCLEROSIS N SCARLET FEVER N MENTAL DISORDER/ILLNESS N CARDIAC ARRHYTHMIA N CANCER: SPECIFY N PNEUMONIA N ATRIAL FIBRILLATION N Gall Stones N PULMONARY EMBOLISM N AUTOIMMUNE DISEASE N Gynecological History Statement/Question Response How many live births 0 Date of Last Mammogram Date of Last Colonoscopy Most Recent Bone Density Date of LMP Most Recent Mammogram 09/16/2023 Breast Problems no Discharge no Obstetrics History GPAL:G 0 P 0 0 0 0 Immunizations Vaccine Type Date Status Note Provider Nam e and Address Organization Details Recorded Time COVID-19, mRNA, LNP-S, PF, 30 mcg/0.3 mL dose 12/04/2020 completed Evelyn Stephenson, [employer] OFFICER [address] [facility], [facility] [address], [place], [address], [facility] [employer] [facility] 08/29/2024 13:59:31 COVID-19, mRNA, LNP-S, PF, 30 mcg/0.3 mL dose 01/04/2021 completed Evelyn Stephenson, [employer] [facility] [facility] OFFICER [address], [address], [place], [address], [employer] 08/29/2024 13:59:31 Past Encounters Encounter ID Performer Location Encounter Start Date Encounter Closed Date Diagnosis/Indication Diagnosis SNOMED-CT Code Diagnosis ICD10 Code Diagnosis Note [id number] Amy Molina MD [facility] [place] [address] [place] [address] 02/04/2021 00:00:00 02/04/2021 09:27:19 [id number] Amy Molina MD [facility] Primary [facility] [place] [address] [place] [address] 03/12/2021 00:00:00 03/12/2021 09:08:23 [id number] Amy Molina MD [facility] Primary [facility] [place] [address] [place] [address] 04/29/2021 00:00:00 04/29/2021 08:26:50 [id number] BERT Wallace [facility] [place] [address] [place] [address] 03/05/2022 00:00:00 03/05/2022 09:28:14 [id number] [facility] [place] [address] [place] [address] 04/17/2022 00:00:00 05/02/2022 12:11:16 [id number] Amy Molina MD [facility] Primary [facility] [place] [address] [place] [address] 10/02/2022 00:00:00 10/03/2022 11:30:39 [id number] Amy Molina MD [facility] Primary [facility] [place] [address] [place] [address] 11/07/2022 00:00:00 11/07/2022 22:07:27 [id number] Amy Molina MD [facility] Primary [facility] [place] [address] [place] [address] 04/16/2023 08:18:13 04/16/2023 09:20:04 [id number] Amy Molina MD [facility] Primary [facility] [place] [address] [place] [address] 04/23/2023 08:13:50 04/23/2023 10:49:27 Adult health examination 729878624 Z00.00 R73.9 Z13.1 Mammogram due 07/26s/p hysterecto myrecommen d shingles vaccinecol onoscopy age 49, repeat 59 Hyperlipidemia 76250328 E78.5 Z79.899 lipids increased off statinrest art lovastatin 20 mg daily Hypothyroidism 19501390 E03.9 Obstructiv e sleep apnea syndrome 24295564 G47.33 Vitamin D deficiency 347 58004 E55.9 Prediabetes 617899303 R7 3.03 Chest pain 85478352 R07. 9 will get stress echocardio gramreview ed s/s that warrant urgent/liana rgent eval in meantime [id number] Amy Molina MD [facility] Primary [facility] [place] [address] [place] [address] 05/26/2023 16:40:06 05/27/2023 13:52:31 [id number] Amy Molina MD [facility] Primary [facility] [place] [address] [place] [address] 06/12/2023 16:22:47 06/12/2023 16:53:01 [id number] Amy Molina MD [facility] Primary [facility] [place] [address] [place] [address] 10/06/2023 09:00:32 10/06/2023 14:54:[id number] [facility] [place] [address] [place] [address] 01/26/2024 08:06:10 01/26/2024 08:49:50 Hyperlipidemia 87425893 E78.5 Z79.899 lipids increased off statinrest art lovastatin 20 mg daily 01/26/24: tolerating statinrech yobani labs Hypothyroidism 89684369 E03.9 Obstructiv e sleep apnea syndrome 03521125 G47.33 on cpap Vitamin D deficiency 347 68814 E55.9 Prediabetes 410272156 R7 3.03 Renewal of prescription 335508403 Z76.0 will use DNA Response card for montelukas t Dietary ma nagement surveillance 620270785 Z71.3 refill given Carotid ar linda stenosis 23155165 I65.29 less than 50% stenosis b/l 2020 Edema of l ower extremity 833725080 R60.0 stress echo with no significan t findings 05/27contin ue to elevatecom pression stockingsi ncrease furosemide 40 mg in AM and 20 mg in afternoonc heck labs Persistent cough 3161790 02 R05.3 could be multifacto rial-combo of PND, GERDrestar t montelukas tincrease esomeprazo le 40 mg dailyflona se nasal spray daily (has this at home)will check CXRpulmona ry referral if no improvemen t in a month Gastroesop hageal reflux disease without esophagitis 705704133 K21.9 increase esomeprazo le 40 mg daily, GERD may not be in control due to persistent cough [id number] JIM Kay [facility] Primary [facility] [place] [address] [place] [address] 05/11/2024 08:20:40 05/11/2024 08:34:[id number] [facility] [place] [address] [place] [address] 06/16/2024 14:25:43 06/16/2024 14:44:06 Cough 63969258 R05.9 symptoms for 4 dayscough, sore throat, pressure to head and behind eyesno n/v/dgood appetiteus ing mucinex, ibuprofenu ses montelukas t on a regular basishome test for covid negative this morning Renewal of prescription 381598095 Z76.0 [id number] Bee brown MD [facility] [address] [facility] [address] [place] [address] 08/31/2024 11:33:24 08/31/2024 12:29:37 Hepatitis C screening 236785450 Z11.59 Hyperlipidemia 69983269 E78.5 Z79.899 Hypothyroidism 99025296 E03.9 Prediabetes 489056221 R7 3.03 Screening for malignant neoplasm of colon 279716740 Z12.11 Ankle edema 49959347 R60 .0 Dietary ma nagement surveillance 644779153 Z71.3 Health Concerns Section Related Observation LastModified by Organization Detai ls LastModified Time None Recorded Concern Status LastModified by Organization Details LastModified Time None Recorded Advance Directives Directive Y: Payers Insurance Date Sequence Insurance Name Policy Number Policy Potts Covered Member ID Potts Member ID Guarantor Name 09/26/2024 1 [place] Kimber Malhotra [id number] Kimber Malhotra Notes Date Note Type Note Provider Name and Address Organization Details Recorded Time 01/26/2024 text/html cough/wheeze not in good control off montelukast, has been using otc allergy med instead continued to have le edema-takes furosemide 20 mg bid, but still has edema with heat/summer time dry cough that is persistent-feels like it is associated with sensation of choking or swallowing down wrong tube, can be painful when swallowing. She does have GERD, uses esomeprazole 20 mg qday-no significant frequent breakthrough. +clearing throat frequently. +PND Amy Molina MD [address], [place] [address], [place], [address], [facility] [employer] 02/06/2024 14:49:04 06/16/2024 text/html pt is here for cough RADHA Barnes-Luis [address], [facility] [address], [place], [address], [employer] [facility] 06/16/2024 14:57:40 08/31/2024 text/html Kimber presents today to establish care and for weight and blood pressure monitoring due to phentermine usage for weight loss. Patient has been on phentermine for 6 months prior to seeing this provider. She has lost a total of 6 pounds. She states that she has had edema to her feet/ankles. She also states that she has had her feet cold and purple at times. Evelyn Stephenson APRN [address] [facility], [address], [place], [address], [employer] 08/31/2024 12:24:32 OBGyn Episode No OBEpisode recorded.
[2025-04-18 15:36] VITALS: BP 134/70; PULSE 100; RESP 18; TEMP 36.7; O2SAT 98
[2025-04-18 15:52] LABS: EDUAAPPEAR Clear; EDUABILI 1+ (Negative); EDUABLOOD Negative (Negative); EDUACOLOR1 Orange; EDUAGLUCOSE Negative (Negative); EDUAKETONE Trace (Negative); EDUALEUKO Trace (Negative); EDUANITRATE Negative (Negative); EDUAPH 6.0; EDUAPROTEIN 1+ (Negative); EDUASPGRAVITY 1.020; EDUAUROBILI 1.0
--- NOTE | 2025-04-18 16:22 | ED.GENADULT ---
HPI - General Adult General Chief complaint: Back Pain/Injury Stated complaint: cramps/back pain Source: patient Mode of arrival: ambulatory Limitations: no limitations History of Present Illness HPI narrative: Patient presents for evaluation suprapubic cramping. Symptom onset 2 days ago. Pain is intermittent, without aggravating or alleviating factors. She also reports bilateral lower back pain since that time. she denies any fever, chills, nausea, vomiting, vaginal bleeding / discharge, or urinary symptoms. She had a telemedicine appointment yesterday was given a prescription for dicyclomine. She states in the past there was concern that she has IBS, although her symptoms yesterday did not respond to dissect. History of total hysterectomy. Related Data Home Medications ?Medication ?Instructions ?Recorded ?Confirmed ?Last Taken ?Type Multiple Vitamin, Womens 1 tablet PO DAILY 08/16/19 10/29/21 Unknown History ascorbic acid (vitamin C) 1,000 mg 2 g PO DAILY 08/16/19 04/18/25 Unknown History tablet (Vitamin C) calcium 600 mg (as 1 cap PO DAILY 08/16/19 04/18/25 Unknown History carbonate)-vitamin D3 5 mcg (200 unit) capsule (Calcium 600 + D(3)) cholecalciferol (vitamin D3) 125 5,000 unit PO DAILY 08/16/19 10/29/21 Unknown History mcg (5,000 unit) tablet (Vitamin D3) esomeprazole magnesium 20 mg 20 mg PO DAILY 08/16/19 04/18/25 Unknown History tablet,delayed release glucosamine 750 gx-tiduqz-zjt 2-C 1 tablet PO DAILY 08/16/19 04/18/25 Unknown History 30 mg-D3 1,000 unit-padma 1 mg tablet vitamin E 268 mg (400 unit) capsule 400 unit PO DAILY 08/16/19 10/29/21 Unknown History apple cider vinegar 600 mg capsule 600 mg PO BID 04/03/21 04/18/25 Unknown History aspirin 81 mg tablet 81 mg PO DAILY 04/03/21 04/18/25 Unknown History levothyroxine 75 mcg tablet 75 mcg PO DAILY 04/03/21 04/18/25 Unknown History furosemide 20 mg tablet 20 - 40 mg PO DAILY PRN Edema 10/25/21 04/18/25 Unknown History ubidecarenone-omega 3-vit E 25 1 cap PO DAILY 06/02/22 Unknown History mg-150 (90-60) mg-200 unit capsule (Co M-00-Szgrdtn E-Fish Oil) dicyclomine 20 mg tablet mg 04/18/25 Unknown History famotidine 40 mg tablet mg 04/18/25 Unknown History furosemide 40 mg tablet mg 04/18/25 Unknown History lovastatin 20 mg tablet mg 04/18/25 Unknown History Allergies Allergy/AdvReac Type Severity Reaction Status Date / Time No Known Allergies Allergy Unknown Verified 04/18/25 15:28 Review of Systems Review of Systems: CONSTITUTIONAL: Denies fever, chills, or sweats. EYES: Denies visual changes, redness, or discharge. ENT: Denies rhinorrhea, congestion, sore throat, or otalgia. CARDIOVASCULAR: Denies chest pain, palpitations, or edema. RESPIRATORY: Denies cough or dyspnea. GASTROINTESTINAL: Denies nausea, vomiting, or diarrhea. GENITOURINARY: reports suprapubic cramping.Denies dysuria or hematuria. SKIN: Denies rash or itching. MUSCULOSKELETAL: Reports bilateral lower back pain. Deniesjoint pain, or myalgia. NEUROLOGIC: Denies headache, numbness, dizziness, or weakness. PSYCHIATRIC: Denies anxiety or depression. 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 Hypothyroidism Osteoarthritis GERD (gastroesophageal reflux disease) Hyperlipidemia Surgical History Surgical History History of arthroscopy of left knee (~10/29/21) Partial medial meniscectomy- [facility] History of hysterectomy Family History Family History Mother Hypertension Family history of malignant neoplasm of uterus Family history of hypercholesterolemia Cerebrovascular accident Family history of malignant neoplasm of cervix Sibling Hypertension Family history of hypercholesterolemia Father Family history of lung cancer Social History Social History Smoking status: Never smoker Alcohol intake: current Alcohol use details: SOCIAL - A COUPLE/MONTH Substance use: never Substance use type: does not use Living arrangements: with family Additional living arrangements comments: [facility]- [phone] Gender identity (if verbalized by the patient): Female Spiritual care concerns: No Exam Narrative: GENERAL: Well-appearing, well-nourished, and in no acute distress. HEAD: Normocephalic, atraumatic. EYES: PERRLA and EOMI. ENT: Nares clear, no rhinorrhea or epistaxis. Mucous membranes moist. Oropharynx without tonsillar hypertrophy exudate or other lesions. Bilateral TMs pearly pastor nonbulging NECK: Supple. No adenopathy or masses. No carotid bruits or JVD CHEST: Clear to auscultation. No respiratory distress. No wheezes rales or rhonchi HEART: Regular rate and rhythm. No murmur heard. Normal peripheral pulses. ABDOMEN: Soft, nontender, nondistended, normal active bowel sounds. BACK: No CVA tenderness EXTREMITIES: Normal range of motion. No edema. SKIN: Warm, dry, no rash. NEURO: No focal deficits. Alert and oriented x3. PSYCH: Normal mood and affect. Course Course Emergency Course: This is a 60-year-old female who presented for evaluation of suprapubic cramping. She has no abdominal tenderness on exam. Her symptoms did not improve with dicyclomine. She does have leukocytes in her urine today. Symptoms seem most consistent with UTI. Will send urine for culture. Discharge with Bactrim. Follow-up with primary provider. Go to the ER for worsening symptoms. Patient in agreement with plan of care. Level of Care: Express Care Visit Vital Signs Vital signs: Vital Signs Temperature 36.7 C 04/18/25 15:36 Pulse Rate 100 04/18/25 15:36 Respiratory Rate 18 04/18/25 15:36 Blood Pressure 134/70 04/18/25 15:36 Pulse Oximetry 98 04/18/25 15:36 Oxygen Delivery Room Air 04/18/25 15:36 Temperature 36.7 C 04/18/25 15:36 Pulse Rate 100 04/18/25 15:36 Respiratory Rate 18 04/18/25 15:36 Blood Pressure 134/70 04/18/25 15:36 Pulse Oximetry 98 04/18/25 15:36 Oxygen Delivery Room Air 04/18/25 15:36 Medical Decision Making Vital Signs Vital Signs: Vital Signs Temperature 36.7 C 04/18/25 15:36 Pulse Rate 100 04/18/25 15:36 Respiratory Rate 18 04/18/25 15:36 Blood Pressure 134/70 04/18/25 15:36 Pulse Oximetry 98 04/18/25 15:36 Oxygen Delivery Room Air 04/18/25 15:36 Temperature 36.7 C 04/18/25 15:36 Pulse Rate 100 04/18/25 15:36 Respiratory Rate 18 04/18/25 15:36 Blood Pressure 134/70 04/18/25 15:36 Pulse Oximetry 98 04/18/25 15:36 Oxygen Delivery Room Air 04/18/25 15:36 Lab Data Labs: Lab Results 04/18/25 Range/Units 15:49 POC Urine Color [place] POC Urine Clarity Clear POC Urine pH 6.0 POC Ur Specif [place] 1.020 POC Urine Protein 1+ (Negative) POC Ur Glucose (UA) Negative (Negative) POC Urine Ketones Trace (Negative) POC Urine Blood Negative (Negative) POC Urine Nitrite Negative (Negative) POC Urine Bilirubin 1+ (Negative) POC Urine Urobilinogen 1.0 POC U Leukocyte Esteras Trace (Negative) Discharge Plan Discharge Clinical Impression: UTI (urinary tract infection) Patient Disposition: Home Condition: Stable Instructions: Antibiotic Form, Urinary Tract Infection in Women (DC) Patient Language: Tristanian Prescriptions: New sulfamethoxazole-trimethoprim [Bactrim DS] 800-160 mg tablet 1 tablet PO Q12H Qty: 14 0RF No Action furosemide 40 mg tablet famotidine 40 mg tablet dicyclomine 20 mg tablet lovastatin 20 mg tablet Co S-64-Aoajkyf E-Fish Oil 25-150-200 mg-mg-unit capsule 1 cap PO DAILY ascorbic acid (vitamin C) [Vitamin C] 1,000 mg Tablet 2 g PO DAILY vitamin E 400 unit Capsule 400 unit PO DAILY cholecalciferol (vitamin D3) [Vitamin D3] 5,000 unit Tablet 5,000 unit PO DAILY Multiple Vitamin, Womens 1 tablet PO DAILY calcium carbonate-vitamin D3 [Calcium 600 + D(3)] 600 mg calcium- 200 unit Capsule 1 cap PO DAILY yilhnpen-xhxoo-tzz 2-C-D3-padma 750-30-1,000-1 ga-sx-tvgb-mg Tablet 1 tablet PO DAILY esomeprazole magnesium 20 mg Tablet,Delayed Release (Dr/Ec) 20 mg PO DAILY levothyroxine 75 mcg tablet 75 mcg PO DAILY apple cider vinegar 600 mg Capsule 600 mg PO BID aspirin 81 mg Tablet 81 mg PO DAILY furosemide 20 mg tablet 20 - 40 mg PO DAILY PRN (Reason: Edema) montelukast 10 mg tablet 10 mg PO DAILY Qty: 90 4RF valacyclovir 1 gram tablet 1,000 mg PO DAILY Qty: 90 4RF nortriptyline 25 mg capsule 25 mg PO HS Qty: 90 4RF Rx Instructions: TAKE 1 CAPSULE BY MOUTH EVERY DAY Follow-up/Referrals: Hugo Hyde DO [Physician] - Time of Disposition: 15:59
== END 2025-04-18 16:00 | disposition home or self-care (01) ==
PROVIDERS: Emergency Provider Nurse Practitioner; Referring Provider Family Medicine
DX: N39.0 Urinary tract infection, site not specified (principal); G47.33 Obstructive sleep apnea (adult) (pediatric); E03.9 Hypothyroidism, unspecified; M19.90 Unspecified osteoarthritis, unspecified site; K21.9 Gastro-esophageal reflux disease without esophagitis; E78.5 Hyperlipidemia, unspecified
CPT/HCPCS: 81003; 87086; 99213; G0463

== ENCOUNTER → 2025-07-03 17:05 | Outpatient (CLI) | payer BC, SELFPAY ==
--- NOTE | ~2025-07-03 | XR_ITS ---
XR lumbar spine min 4V Indication: M54.9 - Dorsalgia, unspecified Comparison: None Findings: Grade 1 anterolisthesis L4 on L5, no fracture. Minimal levoconvex scoliosis Mild loss of disc height throughout. Soft tissues unremarkable Impression: No acute abnormality. Reviewed, dictated and finalized at location P. Impression: No acute abnormality.
--- NOTE | ~2025-07-03 | XR_ITS ---
EXAMINATION: XR hip BI wo pelvis, 07/03/2025 17:15 CDT HISTORY: M25.559 - Pain in unspecified hip COMPARISON: No comparisons available. Findings: No acute fracture or malalignment. No significant degenerative changes. Soft tissues unremarkable. Impression: No acute fracture or malalignment. Reviewed, dictated and finalized at location P. Impression: No acute fracture or malalignment.
== END ==
LOC: EXPCRAD 17:07
PROVIDERS: PCP Family Medicine; Visit Provider Family Medicine
DX: M25.551 Pain in right hip (principal); M25.552 Pain in left hip
CPT/HCPCS: 72110; 73521

== ENCOUNTER 2025-08-28 12:30 | Outpatient (RCR) | payer BC, SELFPAY ==
--- NOTE | 2025-07-25 12:17 | STOPEVAL1 ---
Assessment and note entered by Kati Mcintosh, CURATORIAL SPECIALIST Evaluation Information Assessment Status Evaluation Diagnosis R49.0 ICD-10 Condition Codes (ST) Dysphonia R49.0 Subjective Information The patient is a 60 year old female referred for an outpatient evaluation and treatment for dysphonia following an ENT consult. Tayo reports a long standing history of acid reflux which she takes omeprazole and famotidine for. A history of sinus issues and current use of a CPAP. She states at her ENT consult she was noted to have MTD and a small glottic gap. 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 Her voice can come and go at times and is more strained at the end of the day. She reports neck tension often. Reported Pain Level Pain Score 0: Self Report Assessment ST Clinical Summary The patient is a 60 year old female referred for an outpatient evaluation and treatment for dysphonia following an ENT consult. Patient reports a long standing history of acid reflux which she takes omeprazole and famotidine for. A history of sinus issues and current use of a CPAP. She states at her ENT consult she was noted to have MTD and a small glottic gap. 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 Her voice can come and go at times and is more strained at the end of the day. She reports neck tension often The patient was administered the [facility] Voice Evaluation and Hygiene Assessment. Hygiene: The patient reports 3-4 hours of voicing at work 5 days a week. currently utilizing omeprazole and famotidine for acid reflux. Results of the Voice Evaluation: Respiration: Equal MPT (Maximum Phonation Time) for voiced and voiceless s/z 28/28 seconds, sustained /a/ 20 seconds and /e/ 30 seconds respectively with good breath support for simple exchanges. Some loss or respiration support with prolonged counting. Phonation: The patient demonstrates a harsh vocal quality with prolonged or extensive vocalization. Pitch: Optimal level of 200 hertz with counting, phrases, and sentences. Voiced /ah/ for 20 seconds with 1 pitch break, voices /e/ for 30 seconds without pitch breaks noted via voice meter in close proximity. Loudness: Able to produce a 20 seconds of sustained voicing for /ah and 30 seconds for /e/ at 70 decibels. Passage and conversation speech produced at 65 decibels in close proximity as measured by a voice meter, Conversation at 70 decibels. The patient does demonstrate prolonged speech production at times with limited pause for adequate respiration. 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 Results of the evaluation and recommendations reviewed with the patient. Recommend Speech services 1x a week x 10 visits to address laryngeal tension, diaphragmatic breathing with easy airflow release, vocal hygiene techniques, and coordination or respiration with phonation. Plan of Care Interventions Treatment of Voice ST Services Indicated Yes These treatments will address the objective and functional deficits as defined above. The patient will be advanced safely and appropriately in order for the patient to progress towards his/her prior level of function. Additional exercises will be introduced and as well as a comprehensive home exercise program upon discharge, if needed, ?to ensure carryover of functional gains achieved in the clinic. This treatment plan has been reviewed and agreement upon by the patient.
--- NOTE | 2025-07-25 12:17 | OPREHPOC ---
Outpatient Therapy Plan of Care This is a Multidisciplinary Plan of Care that may contain components documented by all disciplines (PT, OT, and ST.) ST Problem 1 ST Problem #[address] Goal 1 Goal / Goal Update The patient will participate in home programming to improve carry over/generalization of skills to the home environment Target Visit [address] Problem #[address] Goal 1 Goal / Goal Update Voice: 1. The patient will learn techniques to improve vocal hygiene and eliminate abusive behaviors. 2. The patient will be provided written HEP with neck and shoulder exercises to increase muscle awareness and relaxation of laryngeal tension. 3. The patient will learn diaphragmatic breathing techniques and methods of easy airflow release during speech 80% minimal cues. 4. The patient will engage in exercises to promote resonance and release of laryngeal tension 80% minimal cues. 5. The patient will improve self-monitoring of vocal quality, onset of phonation, volume, and laryngeal tension during conversation voice use 80 % minimal cues Target Visit 10
--- NOTE | 2025-08-28 13:00 | STOPDC ---
Assessment and note entered by Kati Mcintosh RISK SPECIALIST Evaluation Information Assessment Status Discharge Reported Pain Level Pain Score 0: Self Report Assessment ST Clinical Summary Initial Evaluation: The patient is a 60 year old female referred for an outpatient evaluation and treatment for dysphonia following an ENT consult. Tayo reports a long standing history of acid reflux which she takes omeprazole and famotidine for. A history of sinus issues and current use of a CPAP. She states at her ENT consult she was noted to have MTD and a small glottic gap. 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 Her voice can come and go at times and is more strained at the end of the day. She reports neck tension often The patient was administered the [facility] Voice Evaluation and Hygiene Assessment. Hygiene: The patient reports 3-4 hours of voicing at work 5 days a week. currently utilizing omeprazole and famotidine for acid reflux. Results of the Voice Evaluation: Respiration: Equal MPT (Maximum Phonation Time) for voiced and voiceless s/z 28/28 seconds, sustained /a/ 20 seconds and /e/ 30 seconds respectively with good breath support for simple exchanges. Some loss or respiration support with prolonged counting. Phonation: The patient demonstrates a harsh vocal quality with prolonged or extensive vocalization. Pitch: Optimal level of 200 hertz with counting, phrases, and sentences. Voiced /ah/ for 20 seconds with 1 pitch break, voices /e/ for 30 seconds without pitch breaks noted via voice meter in close proximity. Loudness: Able to produce a 20 seconds of sustained voicing for /ah and 30 seconds for /e/ at 70 decibels. Passage and conversation speech produced at 65 decibels in close proximity as measured by a voice meter, Conversation at 70 decibels. The patient does demonstrate prolonged speech production at times with limited pause for adequate respiration. 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 Results of the evaluation and recommendations reviewed with the patient. Recommend Speech services 1x a week x 10 visits to address laryngeal tension, diaphragmatic breathing with easy airflow release, vocal hygiene techniques, and coordination or respiration with phonation. Discharge 08-28-25: The patient has decided to discontinue outpatient speech services at this time. The patient reports completing a HEP at this time is something she cannot maintain with work and home life. She stated without the ability to utilize the techniques she has been provided outside treatment she does not feel it will improve. She is requesting discharge from services as she feels it is not something she can address at this time. the patient was provided with a HEP program she can complete should she decided to pursue at a later time. Thank you for the consult Plan of Care Services Indicated No
== END 2025-08-28 16:11 | disposition home or self-care (01) ==
LOC: ANHST 12:30
PROVIDERS: PCP Family Medicine; Visit Provider Otolaryngology
DX: R49.0 Dysphonia (principal)
CPT/HCPCS: 92507; 92524

== ENCOUNTER 2025-09-05 15:32 | Outpatient (CLI) | payer BC, SELFPAY ==
--- NOTE | ~2025-09-05 | XR_ITS ---
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 Findings: No acute fracture or malalignment. Moderate to severe tricompartmental degenerative changes with small effusion Soft tissues unremarkable. Impression: No acute fracture or malalignment. Reviewed, dictated and finalized at location P. E HANDLER Impression: No acute fracture or malalignment.
--- NOTE | ~2025-09-05 | XR_ITS ---
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 Findings: No acute fracture or malalignment. Moderate to severe tricompartmental degenerative changes, small effusion Soft tissues unremarkable. Impression: No acute fracture or malalignment. Reviewed, dictated and finalized at location P. ET EDITOR Impression: No acute fracture or malalignment.
== END 2025-09-05 15:33 | disposition home or self-care (01) ==
LOC: MICIMG 15:33
PROVIDERS: PCP Family Medicine; Visit Provider Orthopaedic Surgery
DX: M17.0 Bilateral primary osteoarthritis of knee (principal)
CPT/HCPCS: 73564